=== PATIENT | male | born 1965 | race Caucasian/White ===

== ENCOUNTER → 2019-12-28 13:42 | Outpatient (BNVA) | payer MEDICAID, SELFPAY | PROVIDERS: PCP Student in an Organized Health Care Education/Training Program; Referring Provider Student in an Organized Health Care Education/Training Program; Visit Provider Internal Medicine | DX: Z86.718 Personal history of other venous thrombosis and embolism (principal); Z51.81 Encounter for therapeutic drug level monitoring; Z79.01 Long term (current) use of anticoagulants | CPT/HCPCS: 85610; 99211 ==

== ENCOUNTER → 2020-01-02 13:53 | Outpatient (BNVA) | payer MEDICAID, SELFPAY | PROVIDERS: PCP Student in an Organized Health Care Education/Training Program; Visit Provider Internal Medicine | DX: Z86.718 Personal history of other venous thrombosis and embolism (principal); Z51.81 Encounter for therapeutic drug level monitoring; Z79.01 Long term (current) use of anticoagulants | CPT/HCPCS: 85610; 99211 ==

== ENCOUNTER → 2020-01-11 13:51 | Outpatient (BNVA) | payer MEDICAID, SELFPAY | PROVIDERS: PCP Student in an Organized Health Care Education/Training Program; Visit Provider Internal Medicine | DX: Z86.718 Personal history of other venous thrombosis and embolism (principal); Z51.81 Encounter for therapeutic drug level monitoring; Z79.01 Long term (current) use of anticoagulants | CPT/HCPCS: 85610; 99211 ==

== ENCOUNTER → 2020-01-25 13:01 | Outpatient (BNVA) | payer MEDICAID, SELFPAY | PROVIDERS: PCP Student in an Organized Health Care Education/Training Program; Visit Provider Internal Medicine | DX: Z86.718 Personal history of other venous thrombosis and embolism (principal); Z51.81 Encounter for therapeutic drug level monitoring; Z79.01 Long term (current) use of anticoagulants | CPT/HCPCS: 85610; 99211 ==

== ENCOUNTER → 2020-02-22 13:09 | Outpatient (BNVA) | payer MEDICAID, SELFPAY | PROVIDERS: PCP Student in an Organized Health Care Education/Training Program; Visit Provider Internal Medicine | DX: Z86.718 Personal history of other venous thrombosis and embolism (principal); Z51.81 Encounter for therapeutic drug level monitoring; Z79.01 Long term (current) use of anticoagulants | CPT/HCPCS: 85610; 99211 ==

== ENCOUNTER → 2020-03-28 13:05 | Outpatient (BNVA) | payer MEDICAID, SELFPAY | PROVIDERS: PCP Student in an Organized Health Care Education/Training Program; Visit Provider Internal Medicine | DX: Z86.718 Personal history of other venous thrombosis and embolism (principal); Z79.01 Long term (current) use of anticoagulants; Z51.81 Encounter for therapeutic drug level monitoring | CPT/HCPCS: 85610; 99211 ==

== ENCOUNTER → 2020-04-01 19:09 | Outpatient (REF) | payer MEDICAID, SELFPAY | LOC: HO.SL 19:09 | PROVIDERS: PCP Student in an Organized Health Care Education/Training Program; Visit Provider Nurse Practitioner Family | DX: G47.33 Obstructive sleep apnea (adult) (pediatric) (principal); R06.83 Snoring | CPT/HCPCS: 95810 ==

== ENCOUNTER → 2020-04-04 13:02 | Outpatient (BNVA) | payer MEDICAID, SELFPAY | PROVIDERS: PCP Student in an Organized Health Care Education/Training Program; Visit Provider Internal Medicine | DX: Z86.718 Personal history of other venous thrombosis and embolism (principal); Z51.81 Encounter for therapeutic drug level monitoring; Z79.01 Long term (current) use of anticoagulants | CPT/HCPCS: 85610; 99211 ==

== ENCOUNTER → 2020-04-11 11:54 | Outpatient (BNVA) | payer MEDICAID, SELFPAY | PROVIDERS: PCP Student in an Organized Health Care Education/Training Program; Visit Provider Internal Medicine Cardiovascular Disease | DX: I10 Essential (primary) hypertension (principal); Z86.711 Personal history of pulmonary embolism | CPT/HCPCS: 99212 ==

== ENCOUNTER → 2020-05-02 13:02 | Outpatient (BNVA) | payer MEDICAID, SELFPAY | PROVIDERS: PCP Student in an Organized Health Care Education/Training Program; Visit Provider Internal Medicine | DX: Z86.718 Personal history of other venous thrombosis and embolism (principal); Z51.81 Encounter for therapeutic drug level monitoring; Z79.01 Long term (current) use of anticoagulants | CPT/HCPCS: 85610; 99211 ==

== ENCOUNTER → 2020-05-30 13:03 | Outpatient (BNVA) | payer MEDICAID, SELFPAY | PROVIDERS: PCP Student in an Organized Health Care Education/Training Program; Visit Provider Internal Medicine | DX: Z86.718 Personal history of other venous thrombosis and embolism (principal); Z51.81 Encounter for therapeutic drug level monitoring; Z79.01 Long term (current) use of anticoagulants | CPT/HCPCS: 85610; 99211 ==

== ENCOUNTER → 2020-06-06 13:02 | Outpatient (BNVA) | payer MEDICAID, SELFPAY | PROVIDERS: PCP Student in an Organized Health Care Education/Training Program; Visit Provider Internal Medicine | DX: Z86.718 Personal history of other venous thrombosis and embolism (principal); Z51.81 Encounter for therapeutic drug level monitoring; Z79.01 Long term (current) use of anticoagulants | CPT/HCPCS: 85610; 99211 ==

== ENCOUNTER → 2020-07-04 13:01 | Outpatient (BNVA) | payer MEDICAID, SELFPAY | PROVIDERS: PCP Student in an Organized Health Care Education/Training Program; Visit Provider Internal Medicine | DX: Z86.718 Personal history of other venous thrombosis and embolism (principal); Z79.01 Long term (current) use of anticoagulants; Z51.81 Encounter for therapeutic drug level monitoring | CPT/HCPCS: 85610; 99211 ==

== ENCOUNTER → 2020-07-11 13:05 | Outpatient (BNVA) | payer MEDICAID, SELFPAY | PROVIDERS: PCP Student in an Organized Health Care Education/Training Program; Visit Provider Internal Medicine | DX: Z86.718 Personal history of other venous thrombosis and embolism (principal); Z79.01 Long term (current) use of anticoagulants; Z51.81 Encounter for therapeutic drug level monitoring | CPT/HCPCS: 85610; 99211 ==

== ENCOUNTER → 2020-07-25 13:37 | Outpatient (BNVA) | payer MEDICAID, SELFPAY | PROVIDERS: PCP Student in an Organized Health Care Education/Training Program; Visit Provider Internal Medicine | DX: Z86.718 Personal history of other venous thrombosis and embolism (principal); Z79.01 Long term (current) use of anticoagulants; Z51.81 Encounter for therapeutic drug level monitoring | CPT/HCPCS: 85610; 99211 ==

== ENCOUNTER → 2020-08-22 13:03 | Outpatient (BNVA) | payer MEDICAID, SELFPAY | PROVIDERS: PCP Student in an Organized Health Care Education/Training Program; Visit Provider Internal Medicine | DX: Z86.718 Personal history of other venous thrombosis and embolism (principal); Z51.81 Encounter for therapeutic drug level monitoring; Z79.01 Long term (current) use of anticoagulants | CPT/HCPCS: 85610; 99211 ==

== ENCOUNTER → 2020-09-25 13:39 | Outpatient (BNVA) | payer MEDICAID, SELFPAY | PROVIDERS: PCP Student in an Organized Health Care Education/Training Program; Visit Provider Internal Medicine | DX: Z86.718 Personal history of other venous thrombosis and embolism (principal); Z51.81 Encounter for therapeutic drug level monitoring; Z79.01 Long term (current) use of anticoagulants | CPT/HCPCS: 85610; 99211 ==

== ENCOUNTER → 2020-10-09 13:26 | Outpatient (BNVA) | payer MEDICAID, SELFPAY | PROVIDERS: PCP Student in an Organized Health Care Education/Training Program; Visit Provider Internal Medicine | DX: Z86.718 Personal history of other venous thrombosis and embolism (principal); Z51.81 Encounter for therapeutic drug level monitoring; Z79.01 Long term (current) use of anticoagulants | CPT/HCPCS: 85610; 99211 ==

== ENCOUNTER → 2020-11-01 13:13 | Outpatient (BNVA) | payer MEDICAID, SELFPAY | PROVIDERS: PCP Student in an Organized Health Care Education/Training Program; Visit Provider Internal Medicine | DX: Z86.718 Personal history of other venous thrombosis and embolism (principal); Z51.81 Encounter for therapeutic drug level monitoring; Z79.01 Long term (current) use of anticoagulants | CPT/HCPCS: 85610; 99211 ==

== ENCOUNTER → 2020-11-29 13:03 | Outpatient (BNVA) | payer MEDICAID, SELFPAY | PROVIDERS: PCP Student in an Organized Health Care Education/Training Program; Visit Provider Internal Medicine | DX: Z86.718 Personal history of other venous thrombosis and embolism (principal); Z51.81 Encounter for therapeutic drug level monitoring; Z79.01 Long term (current) use of anticoagulants | CPT/HCPCS: 85610; 99211 ==

== ENCOUNTER → 2020-12-13 13:22 | Outpatient (BNVA) | payer MEDICAID, SELFPAY | PROVIDERS: PCP Student in an Organized Health Care Education/Training Program; Visit Provider Internal Medicine | DX: Z86.718 Personal history of other venous thrombosis and embolism (principal); Z51.81 Encounter for therapeutic drug level monitoring; Z79.01 Long term (current) use of anticoagulants | CPT/HCPCS: 85610; 99211 ==

== ENCOUNTER → 2021-01-03 13:01 | Outpatient (BNVA) | payer MEDICAID, SELFPAY | PROVIDERS: PCP Student in an Organized Health Care Education/Training Program; Visit Provider Internal Medicine | DX: Z86.718 Personal history of other venous thrombosis and embolism (principal); Z51.81 Encounter for therapeutic drug level monitoring; Z79.01 Long term (current) use of anticoagulants | CPT/HCPCS: 85610; 99211 ==

== ENCOUNTER → 2021-01-31 14:00 | Outpatient (BNVA) | payer MEDICAID, SELFPAY | PROVIDERS: PCP Student in an Organized Health Care Education/Training Program; Visit Provider Internal Medicine | DX: Z86.718 Personal history of other venous thrombosis and embolism (principal); Z51.81 Encounter for therapeutic drug level monitoring; Z79.01 Long term (current) use of anticoagulants | CPT/HCPCS: 85610; 99211 ==

== ENCOUNTER → 2021-02-28 13:28 | Outpatient (BNVA) | payer MEDICAID, SELFPAY | PROVIDERS: PCP Student in an Organized Health Care Education/Training Program; Visit Provider Internal Medicine | DX: Z86.718 Personal history of other venous thrombosis and embolism (principal); Z51.81 Encounter for therapeutic drug level monitoring; Z79.01 Long term (current) use of anticoagulants | CPT/HCPCS: 85610; 99211 ==

== ENCOUNTER → 2021-03-31 11:07 | Outpatient (BNVA) | payer MEDICAID, SELFPAY | PROVIDERS: PCP Student in an Organized Health Care Education/Training Program; Visit Provider Internal Medicine | DX: Z86.718 Personal history of other venous thrombosis and embolism (principal); Z51.81 Encounter for therapeutic drug level monitoring; Z79.01 Long term (current) use of anticoagulants | CPT/HCPCS: 85610; 99211 ==

== ENCOUNTER → 2021-05-07 14:02 | Outpatient (BNVA) | payer MEDICAID, SELFPAY | PROVIDERS: PCP Student in an Organized Health Care Education/Training Program; Visit Provider Internal Medicine | DX: Z86.718 Personal history of other venous thrombosis and embolism (principal); Z51.81 Encounter for therapeutic drug level monitoring; Z79.01 Long term (current) use of anticoagulants | CPT/HCPCS: 85610; 99211 ==

== ENCOUNTER → 2021-06-04 13:54 | Outpatient (BNVA) | payer MEDICAID, SELFPAY | PROVIDERS: PCP Student in an Organized Health Care Education/Training Program; Visit Provider Internal Medicine | DX: Z86.718 Personal history of other venous thrombosis and embolism (principal); Z51.81 Encounter for therapeutic drug level monitoring; Z79.01 Long term (current) use of anticoagulants | CPT/HCPCS: 85610; 99211 ==

== ENCOUNTER → 2021-06-18 14:02 | Outpatient (BNVA) | payer MEDICAID, SELFPAY | PROVIDERS: PCP Student in an Organized Health Care Education/Training Program; Visit Provider Internal Medicine | DX: Z86.718 Personal history of other venous thrombosis and embolism (principal); Z51.81 Encounter for therapeutic drug level monitoring; Z79.01 Long term (current) use of anticoagulants | CPT/HCPCS: 85610; 99211 ==

== ENCOUNTER → 2021-10-30 13:39 | Outpatient (BNVA) | payer OTHER, SELFPAY | PROVIDERS: PCP Student in an Organized Health Care Education/Training Program; Visit Provider Internal Medicine | DX: Z86.718 Personal history of other venous thrombosis and embolism (principal); Z79.01 Long term (current) use of anticoagulants; Z51.81 Encounter for therapeutic drug level monitoring | CPT/HCPCS: 85610; 99211 ==

== ENCOUNTER → 2021-11-06 14:01 | Outpatient (BNVA) | payer OTHER, SELFPAY | PROVIDERS: PCP Student in an Organized Health Care Education/Training Program; Visit Provider Internal Medicine | DX: Z86.718 Personal history of other venous thrombosis and embolism (principal); Z79.01 Long term (current) use of anticoagulants; Z51.81 Encounter for therapeutic drug level monitoring | CPT/HCPCS: 85610; 99211 ==

== ENCOUNTER → 2021-11-27 11:22 | Outpatient (BNVA) | payer OTHER, SELFPAY | PROVIDERS: PCP Student in an Organized Health Care Education/Training Program; Visit Provider Internal Medicine | DX: Z86.718 Personal history of other venous thrombosis and embolism (principal); Z79.01 Long term (current) use of anticoagulants; Z51.81 Encounter for therapeutic drug level monitoring | CPT/HCPCS: 85610; 99211 ==

== ENCOUNTER → 2021-12-25 13:00 | Outpatient (BNVA) | payer OTHER, SELFPAY | PROVIDERS: PCP Student in an Organized Health Care Education/Training Program; Visit Provider Internal Medicine | DX: Z86.718 Personal history of other venous thrombosis and embolism (principal); Z79.01 Long term (current) use of anticoagulants; Z51.81 Encounter for therapeutic drug level monitoring | CPT/HCPCS: 85610; 99211 ==

== ENCOUNTER → 2022-01-29 13:03 | Outpatient (BNVA) | payer OTHER, SELFPAY | PROVIDERS: PCP Student in an Organized Health Care Education/Training Program; Visit Provider Internal Medicine | DX: Z86.718 Personal history of other venous thrombosis and embolism (principal); Z79.01 Long term (current) use of anticoagulants; Z51.81 Encounter for therapeutic drug level monitoring | CPT/HCPCS: 85610; 99211 ==

== ENCOUNTER → 2022-02-26 12:59 | Outpatient (BNVA) | payer OTHER, SELFPAY | PROVIDERS: PCP Student in an Organized Health Care Education/Training Program; Visit Provider Internal Medicine | DX: Z86.718 Personal history of other venous thrombosis and embolism (principal); Z79.01 Long term (current) use of anticoagulants; Z51.81 Encounter for therapeutic drug level monitoring | CPT/HCPCS: 85610; 99211 ==

== ENCOUNTER → 2022-04-02 13:20 | Outpatient (BNVA) | payer OTHER, SELFPAY | PROVIDERS: PCP Student in an Organized Health Care Education/Training Program; Visit Provider Internal Medicine | DX: Z86.718 Personal history of other venous thrombosis and embolism (principal); Z79.01 Long term (current) use of anticoagulants; Z51.81 Encounter for therapeutic drug level monitoring | CPT/HCPCS: 85610; 99211 ==

== ENCOUNTER → 2022-04-30 13:01 | Outpatient (BNVA) | payer OTHER, SELFPAY | PROVIDERS: PCP Student in an Organized Health Care Education/Training Program; Visit Provider Internal Medicine | DX: Z86.718 Personal history of other venous thrombosis and embolism (principal); Z79.01 Long term (current) use of anticoagulants; Z51.81 Encounter for therapeutic drug level monitoring | CPT/HCPCS: 85610; 99211 ==

== ENCOUNTER → 2022-05-28 12:42 | Outpatient (BNVA) | payer OTHER, SELFPAY | PROVIDERS: PCP Student in an Organized Health Care Education/Training Program; Visit Provider Internal Medicine | DX: Z86.718 Personal history of other venous thrombosis and embolism (principal); Z79.01 Long term (current) use of anticoagulants; Z51.81 Encounter for therapeutic drug level monitoring | CPT/HCPCS: 85610; 99211 ==

== ENCOUNTER → 2022-06-11 13:24 | Outpatient (BNVA) | payer OTHER, SELFPAY | PROVIDERS: PCP Student in an Organized Health Care Education/Training Program; Visit Provider Internal Medicine | DX: Z86.718 Personal history of other venous thrombosis and embolism (principal); Z79.01 Long term (current) use of anticoagulants; Z51.81 Encounter for therapeutic drug level monitoring | CPT/HCPCS: 85610; 99211 ==

== ENCOUNTER → 2022-07-09 13:02 | Outpatient (BNVA) | payer OTHER, SELFPAY | PROVIDERS: PCP Student in an Organized Health Care Education/Training Program; Visit Provider Internal Medicine | DX: Z86.718 Personal history of other venous thrombosis and embolism (principal); Z79.01 Long term (current) use of anticoagulants; Z51.81 Encounter for therapeutic drug level monitoring | CPT/HCPCS: 85610; 99211 ==

== ENCOUNTER → 2022-07-23 13:05 | Outpatient (BNVA) | payer OTHER, SELFPAY | PROVIDERS: PCP Internal Medicine; Visit Provider Internal Medicine | DX: Z86.718 Personal history of other venous thrombosis and embolism (principal); Z79.01 Long term (current) use of anticoagulants; Z51.81 Encounter for therapeutic drug level monitoring | CPT/HCPCS: 85610; 99211 ==

== ENCOUNTER → 2022-08-20 13:02 | Outpatient (BNVA) | payer OTHER, SELFPAY | PROVIDERS: PCP Internal Medicine; Visit Provider Internal Medicine | DX: Z86.718 Personal history of other venous thrombosis and embolism (principal); Z79.01 Long term (current) use of anticoagulants; Z51.81 Encounter for therapeutic drug level monitoring | CPT/HCPCS: 85610; 99211 ==

== ENCOUNTER 2022-09-28 13:02 | Outpatient (AMB) | payer OTHER, SELFPAY ==
[2022-09-28 13:57] LABS: Prothrombin Time Whole Bld POC 52.4 sec (11.1-13.5); ~PT, ~INR - Anti Coag Clinic 4.4 (0.9-1.1)
--- NOTE | 2022-09-28 13:59 | MHC.OFFVISCO ---
Intake Intake Visit Reasons: Anticoagulation Allergies No Known Allergies [No Known Allergies*] Allergy (Verified 09/28/22 13:51) Medication List - Last Reconciled 09/28/22 by Rain Granados RN acetaminophen ER (Arthritis Pain Relief (acetaminophen) ER) 650 mg PO Q8H amlodipine 5 mg PO DAILY furosemide 40 mg PO DAILY gabapentin 300 mg PO TID triamcinolone acetonide 0.1% topical PRN warfarin 4 mg See Protocol PO DAILY Nursing Note hoping to have scooter soon for transportaion INR 4.4? out of therapeutic range Medications and supplements reviewed Patient status: did not have enough green s Medications or supplements: no changes Diet: good Denies any signs and symptoms of bleeding or clotting or unusual bruising Bleeding, bruising, clotting discussed Nutritional guidance given: review food list weazam , eat greens weekly Dose: hold today,then 4mg x 6 days/ 6mg x 1 day F/U INR Date : 10/08/22 ?? Patient verbalizing understanding of instructions given. Anti-Coag Initial Assessment Social Hx Smoking packs per day: 0.5 Coding Level of Care Code Est Patient Level 1 Diagnoses Current use of anticoagulant therapy Z79.01 Results AMB INR Fingerstick AMB INR Fingerstick 4.4 Last Edit by Rain Granados RN on 09/28/22 13:59 interfacing failure Assessment & Plan Assessment & Plan (1) Current use of anticoagulant therapy: Code(s): Z79.01 - intermediate frame tender (current) use of anticoagulants Category: Medical
== END 2022-09-28 14:10 | disposition home or self-care (01) ==
LOC: HO.ACS 13:02
PROVIDERS: PCP Internal Medicine; Visit Provider Internal Medicine
DX: Z79.01 Long term (current) use of anticoagulants (principal)

== ENCOUNTER → 2022-09-28 13:02 | Outpatient (BNVA) | payer OTHER, SELFPAY | PROVIDERS: PCP Internal Medicine; Visit Provider Internal Medicine | DX: Z86.718 Personal history of other venous thrombosis and embolism (principal); Z79.01 Long term (current) use of anticoagulants; Z51.81 Encounter for therapeutic drug level monitoring | CPT/HCPCS: 85610; 99211 ==

== ENCOUNTER 2022-10-08 13:01 | Outpatient (AMB) | payer OTHER, SELFPAY ==
[2022-10-08 13:11] LABS: Prothrombin Time Whole Bld POC 30.4 sec (11.1-13.5); ~PT, ~INR - Anti Coag Clinic 2.5 (0.9-1.1)
--- NOTE | 2022-10-08 13:13 | MHC.OFFVISCO ---
Intake Intake Visit Reasons: Anticoagulation Allergies No Known Allergies [No Known Allergies*] Allergy (Verified 10/08/22 13:04) Medication List - Last Reconciled 10/08/22 by Archana Jones RN acetaminophen ER (Arthritis Pain Relief (acetaminophen) ER) 650 mg PO Q8H amlodipine 5 mg PO DAILY furosemide 40 mg PO DAILY gabapentin 300 mg PO TID triamcinolone acetonide 0.1% topical PRN warfarin 4 mg See Protocol PO DAILY Nursing Note Amb to [facility] slowly on his crutches feeling ok Medications and supplements reviewed No changes in health, diet, medications, or supplements Denies any unusual signs and symptoms of bruising, bleeding Denies any new Chest pain, SOB, or clotting INR: 2.5 in therapeutic range Nutritional guidance given: balance greens and reds in diet, sts he is eating 1 meal a day, sts trying to loose weight describes a lunch of pancakes and ice cream Dose: continue usual dosing; 6mg x 1 day and 4mg x 6 days F/U INR: 4 weeks Patient verbalizes understanding of instructions given with accurate read back/ teach back of dosing Anti-Coag Initial Assessment Social Hx Smoking packs per day: 0.5 Coding Level of Care Code Est Patient Level 1 Diagnoses Current use of anticoagulant therapy Z79.01 Time Spent (min) 15 Assessment & Plan Assessment & Plan (1) Current use of anticoagulant therapy: Code(s): Z79.01 - [facility] (current) use of anticoagulants Category: Medical
== END 2022-10-08 14:37 | disposition home or self-care (01) ==
LOC: HO.ACS 13:01
PROVIDERS: PCP Internal Medicine; Visit Provider Internal Medicine
DX: Z79.01 Long term (current) use of anticoagulants (principal)

== ENCOUNTER → 2022-10-08 13:01 | Outpatient (BNVA) | payer OTHER, SELFPAY | PROVIDERS: PCP Internal Medicine; Visit Provider Internal Medicine | DX: Z86.718 Personal history of other venous thrombosis and embolism (principal); Z79.01 Long term (current) use of anticoagulants; Z51.81 Encounter for therapeutic drug level monitoring | CPT/HCPCS: 85610; 99211 ==

== ENCOUNTER 2022-11-24 13:10 | Outpatient (AMB) | payer OTHER, SELFPAY ==
[2022-11-24 13:18] LABS: Prothrombin Time Whole Bld POC 22.6 sec (11.1-13.5); ~PT, ~INR - Anti Coag Clinic 1.9 (0.9-1.1)
--- NOTE | 2022-11-24 13:38 | MHC.OFFVISCO ---
Intake Intake Visit Reasons: Anticoagulation Allergies No Known Allergies [No Known Allergies*] Allergy (Verified 11/24/22 13:13) Medication List - Last Reconciled 11/24/22 by Archana Jones, RN acetaminophen ER (Arthritis Pain Relief (acetaminophen) ER) 650 mg PO Q8H amlodipine 5 mg PO DAILY furosemide 40 mg PO DAILY gabapentin 300 mg PO TID triamcinolone acetonide 0.1% topical PRN warfarin 4 mg See Protocol PO DAILY Nursing Note Amb to [facility] slowly using crutches feeling ok, sts he should be getting his scooter soon Medications and supplements reviewed, sts he has run out of warfarin had a half a pill that I took last night as that is all I had left (usual dose is 4mg) sts he called for a refill a few days ago but they told me they could not fill it as it was too early call to pharmacy at [facility] and pharmacist sts he is eligible for a refill however prescription is for one tablet daily and is filled for 30 days, script will be available today 20 mins per pharmacist reviewed with pharmacist Koki pt dosing. PCP info obtained and PCP will be called to update script so pt gets enough warfarin for dosing pt instructed that he also needs to be proactive since he could of called PCP last week re this issue as he was aware of the take 1 pill daily issue No other changes in health, diet, medications, or supplements Denies any unusual signs and symptoms of bruising, bleeding Denies any new Chest pain, SOB, or clotting INR: 1.9 below therapeutic range Nutritional guidance given: no greens x 2 days then balance greens and reds in diet Dose: increase dose today to 6mg then resume usual dosing;6mg on Wednesday and 4mg all other days F/U INR: 4 weeks Patient verbalizes understanding of instructions given with accurate read back/ teach back of dosing call to [facility] for PCP, continue on hold x 18 mins and will leave message for PCP regarding warfarin script Call to [facility] critical care line regarding above, spoke with Yulia GUNN who will alert physician regarding script issues as written, she also sts pt is over due for F/U appt call to pt and message left to call for F/U appointment with new PCP, Antwon Rodriguez Anti-Coag Initial Assessment Social Hx Smoking packs per day: 0.5 Coding Level of Care Code Est Patient Level 2 Diagnoses Current use of anticoagulant therapy Z79.01 Time Spent (min) 30 Assessment & Plan Assessment & Plan (1) Current use of anticoagulant therapy: Code(s): Z79.01 - care home (current) use of anticoagulants Category: Medical
== END 2022-11-24 14:04 | disposition home or self-care (01) ==
LOC: HO.ACS 13:10
PROVIDERS: PCP Internal Medicine; Visit Provider Internal Medicine
DX: Z79.01 Long term (current) use of anticoagulants (principal)

== ENCOUNTER → 2022-11-24 13:10 | Outpatient (BNVA) | payer OTHER, SELFPAY | PROVIDERS: PCP Internal Medicine; Visit Provider Internal Medicine | DX: Z86.718 Personal history of other venous thrombosis and embolism (principal); Z79.01 Long term (current) use of anticoagulants; Z51.81 Encounter for therapeutic drug level monitoring | CPT/HCPCS: 85610; 99212 ==

== ENCOUNTER 2022-12-22 12:58 | Outpatient (AMB) | payer OTHER, SELFPAY ==
[2022-12-22 13:10] LABS: Prothrombin Time Whole Bld POC 23.8 sec (11.1-13.5)
--- NOTE | 2022-12-22 13:13 | MHC.OFFVISCO ---
Intake Intake Visit Reasons: Anticoagulation Allergies No Known Allergies [No Known Allergies*] Allergy (Verified 12/22/22 13:06) Medication List - Last Reconciled 12/22/22 by Archana Jones, RN acetaminophen ER (Arthritis Pain Relief (acetaminophen) ER) 650 mg PO Q8H amlodipine 5 mg PO DAILY furosemide 40 mg PO DAILY gabapentin 300 mg PO TID triamcinolone acetonide 0.1% topical PRN warfarin 4 mg See Protocol PO DAILY Nursing Note Amb to [facility] using crutches for support, feeling ok Medications and supplements reviewed, sts he is almost out of warfarin and it will be refilled tomorrow, sts he already took dose today and will greens picker warfarin tomorrow, also sts he took only 4mg Wednesday instead of 6mg as he was running low, and the pharmacy would not refill until Wednesday this week referred to PCP for refill concerns and to not wait till running out of pills No other changes in health, diet, medications, or supplements Denies any unusual signs and symptoms of bruising, bleeding Denies any new Chest pain, SOB, or clotting INR: 2.0 just in therapeutic range (did not take usual doisng) Nutritional guidance given: no greens x 2 days (not a green eater) then balance greens and reds in diet Dose: continue usual dosing;6mg on Fridays, 4mg x 6 days F/U INR: 4 weeks Patient verbalizes understanding of instructions given with accurate read back/ teach back of dosing Anti-Coag Initial Assessment Social Hx Smoking packs per day: 0.5 Coding Level of Care Code Est Patient Level 1 Diagnoses Current use of anticoagulant therapy Z79.01 Time Spent (min) 15 Assessment & Plan Assessment & Plan (1) Current use of anticoagulant therapy: Code(s): 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
== END 2022-12-22 13:23 | disposition home or self-care (01) ==
LOC: HO.ACS 12:58
PROVIDERS: PCP Internal Medicine; Visit Provider Internal Medicine
DX: Z79.01 Long term (current) use of anticoagulants (principal)

== ENCOUNTER → 2022-12-22 12:58 | Outpatient (BNVA) | payer OTHER, SELFPAY | PROVIDERS: PCP Internal Medicine; Visit Provider Internal Medicine | DX: Z86.718 Personal history of other venous thrombosis and embolism (principal); Z51.81 Encounter for therapeutic drug level monitoring; Z79.01 Long term (current) use of anticoagulants | CPT/HCPCS: 85610; 99211 ==

== ENCOUNTER 2023-01-19 12:56 | Outpatient (AMB) | payer OTHER, SELFPAY ==
[2023-01-19 13:05] LABS: Prothrombin Time Whole Bld POC 31.5 sec (11.1-13.5); ~PT, ~INR - Anti Coag Clinic 2.6 (0.9-1.1)
--- NOTE | 2023-01-19 13:10 | MHC.OFFVISCO ---
Intake Intake Visit Reasons: Anticoagulation Allergies No Known Allergies [No Known Allergies*] Allergy (Verified 12/22/22 13:06) Nursing Note INR: 2.6 in therapeutic range Medications and supplements reviewed PT STATES HIS HIPS JOINTS ARE WORN COMPLETELY OUT AND NEEDS A HIP REPLACEMENT EXPERT, INSTRUCTED TO CALL WITH SURGERY DATE Denies any signs and symptoms of bleeding or bruising or clotting. Bleeding, bruising, clotting discussed Nutritional guidance given KEEP EATING A MIX OF FRUITS AND VEGETABLES Dose: 6MG X 1 DAY/ 4MG X 6 DAYS F/U INR: 4 WEEKS Patient verbalizes understanding of instructions given Anti-Coag Initial Assessment Social Hx Smoking packs per day: 0.5 Coding Level of Care Code Est Patient Level 1 Diagnoses Current use of anticoagulant therapy Z79.01 Assessment & Plan Assessment & Plan (1) Current use of anticoagulant therapy: Code(s): Z79.01 - bed bug exterminator (current) use of anticoagulants Category: Medical
== END 2023-01-19 13:12 | disposition home or self-care (01) ==
LOC: HO.ACS 12:56
PROVIDERS: PCP Internal Medicine; Visit Provider Internal Medicine
DX: Z79.01 Long term (current) use of anticoagulants (principal)

== ENCOUNTER → 2023-01-19 12:56 | Outpatient (BNVA) | payer OTHER, SELFPAY | PROVIDERS: PCP Internal Medicine; Visit Provider Internal Medicine | DX: Z86.718 Personal history of other venous thrombosis and embolism (principal); Z79.01 Long term (current) use of anticoagulants; Z51.81 Encounter for therapeutic drug level monitoring | CPT/HCPCS: 85610; 99211 ==

== ENCOUNTER 2023-02-18 13:03 | Outpatient (AMB) | payer OTHER, SELFPAY ==
--- NOTE | 2023-02-18 13:08 | MHC.OFFVISCO ---
Intake Intake Visit Reasons: Anticoagulation Allergies No Known Allergies [No Known Allergies*] Allergy (Verified 02/18/23 13:04) Medication List - Last Reconciled 02/18/23 by Rain Granados RN acetaminophen ER (Arthritis Pain Relief (acetaminophen) ER) 650 mg PO Q8H amlodipine 5 mg PO DAILY furosemide 40 mg PO DAILY gabapentin 300 mg PO TID triamcinolone acetonide 0.1% topical PRN warfarin 4 mg See Protocol PO DAILY Nursing Note INR: 2.5 in therapeutic range Medications and supplements reviewed No changes in health, diet, medications, or supplements, Denies any signs and symptoms of bleeding or bruising or clotting. 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
[2023-02-18 15:49] LABS: Prothrombin Time Whole Bld POC 29.6 sec (11.1-13.5); ~PT, ~INR - Anti Coag Clinic 2.5 (0.9-1.1)
== END 2023-02-18 13:18 | disposition home or self-care (01) ==
LOC: HO.ACS 13:04
PROVIDERS: PCP Internal Medicine; Visit Provider Internal Medicine
DX: Z79.01 Long term (current) use of anticoagulants (principal)

== ENCOUNTER → 2023-02-18 13:03 | Outpatient (BNVA) | payer OTHER, SELFPAY | PROVIDERS: PCP Internal Medicine; Visit Provider Internal Medicine | DX: Z86.718 Personal history of other venous thrombosis and embolism (principal); Z79.01 Long term (current) use of anticoagulants; Z51.81 Encounter for therapeutic drug level monitoring | CPT/HCPCS: 85610; 99211 ==

== ENCOUNTER 2023-03-18 12:56 | Outpatient (AMB) | payer OTHER, SELFPAY ==
--- NOTE | 2023-03-18 13:12 | MHC.OFFVISCO ---
Intake Intake Visit Reasons: Anticoagulation Allergies No Known Allergies [No Known Allergies*] Allergy (Verified 03/18/23 13:10) Medication List - Last Reconciled 03/18/23 by Nery Holguin RN acetaminophen ER (Arthritis Pain Relief (acetaminophen) ER) 650 mg PO Q8H amlodipine 5 mg PO DAILY furosemide 40 mg PO DAILY gabapentin 300 mg PO TID triamcinolone acetonide 0.1% topical PRN warfarin 4 mg See Protocol PO DAILY Nursing Note INR: 2.6- in therapeutic range of 2-3 Medications and supplements reviewed- no changes ibuprofen prn- risks/bleed risk reviewed with pt pt with severe athritic pain issues/hips. amb with crutches, has scooter at home No changes in health, diet, medications, or supplements, Denies any signs and symptoms of bleeding or bruising or clotting. Bleeding, bruising, clotting discussed Nutritional guidance given Dose: 4mg x 6, 6mg x 1 F/U INR: 4 weeks Patient verbalizes understanding of instructions given Anti-Coag Initial Assessment Social Hx Smoking packs per day: 0.5 Coding Level of Care Code Est Patient Level 1 Diagnoses Current use of anticoagulant therapy Z79.01 Assessment & Plan Assessment & Plan (1) Current use of anticoagulant therapy: Code(s): Z79.01 - intermediate manager (current) use of anticoagulants Category: Medical
[2023-03-18 13:14] LABS: Prothrombin Time Whole Bld POC 31.1 sec (11.1-13.5); ~PT, ~INR - Anti Coag Clinic 2.6 (0.9-1.1)
== END 2023-03-18 13:20 | disposition home or self-care (01) ==
LOC: HO.ACS 12:56
PROVIDERS: PCP Internal Medicine; Visit Provider Internal Medicine
DX: Z79.01 Long term (current) use of anticoagulants (principal)

== ENCOUNTER → 2023-03-18 12:56 | Outpatient (BNVA) | payer OTHER, SELFPAY | PROVIDERS: PCP Internal Medicine; Visit Provider Internal Medicine | DX: Z86.718 Personal history of other venous thrombosis and embolism (principal); Z79.01 Long term (current) use of anticoagulants; Z51.81 Encounter for therapeutic drug level monitoring | CPT/HCPCS: 85610; 99211 ==

== ENCOUNTER 2023-04-16 13:01 | Outpatient (AMB) | payer OTHER, SELFPAY ==
[2023-04-16 13:17] LABS: Prothrombin Time Whole Bld POC 30.9 sec (11.1-13.5); ~PT, ~INR - Anti Coag Clinic 2.6 (0.9-1.1)
--- NOTE | 2023-04-16 13:19 | MHC.OFFVISCO ---
Intake Intake Visit Reasons: Anticoagulation Allergies No Known Allergies [No Known Allergies*] Allergy (Verified 04/16/23 13:09) Medication List - Last Reconciled 04/16/23 by Archana Montes, LUIS A acetaminophen ER (Arthritis Pain Relief (acetaminophen) ER) 650 mg PO Q8H amlodipine 10 mg PO DAILY furosemide 40 mg PO DAILY gabapentin 300 mg PO TID triamcinolone acetonide 0.1% topical PRN warfarin 4 mg See Protocol PO DAILY Nursing Note PT TO [facility] WITH NO C/O UNUSUAL BRUISING OR BLEEDING. NO CHEST PAIN OR SOB. AMLODIPINE HAS BEEN CHANGED FROM 5 MG TO 10 MG DAILY. INR 2.6 IN RANGE. PLAN TO CONTINUE USUAL DOSING AND F/U IN 1 MONTH. PT VERBALIZES UNDERSTANDING. Anti-Coag Initial Assessment Social Hx Smoking packs per day: 0.5 Coding Level of Care Code Est Patient Level 1 Diagnoses Current use of anticoagulant therapy Z79.01 Assessment & Plan Assessment & Plan (1) Current use of anticoagulant therapy: Code(s): Z79.01 - intermediate frame tender (current) use of anticoagulants Category: Medical
== END 2023-04-16 13:27 | disposition home or self-care (01) ==
LOC: HO.ACS 13:02
PROVIDERS: PCP Internal Medicine; Visit Provider Internal Medicine
DX: Z79.01 Long term (current) use of anticoagulants (principal)

== ENCOUNTER → 2023-04-16 13:01 | Outpatient (BNVA) | payer OTHER, SELFPAY | PROVIDERS: PCP Internal Medicine; Visit Provider Internal Medicine | DX: Z86.718 Personal history of other venous thrombosis and embolism (principal); Z79.01 Long term (current) use of anticoagulants; Z51.81 Encounter for therapeutic drug level monitoring | CPT/HCPCS: 85610; 99211 ==

== ENCOUNTER 2023-05-13 13:00 | Outpatient (AMB) | payer OTHER, SELFPAY ==
--- NOTE | 2023-05-13 13:12 | MHC.OFFVISCO ---
Intake Intake Visit Reasons: Anticoagulation Allergies No Known Allergies [No Known Allergies*] Allergy (Verified 05/13/23 13:03) Medication List - Last Reconciled 05/13/23 by Rain Granados RN acetaminophen ER (Arthritis Pain Relief (acetaminophen) ER) 650 mg PO Q8H amlodipine 10 mg PO DAILY furosemide 40 mg PO DAILY gabapentin 300 mg PO TID rosuvastatin 10 mg PO BEDTIME triamcinolone acetonide 0.1% topical PRN warfarin 4 mg See Protocol PO DAILY Nursing Note INR: 2.3 in therapeutic range Medications and supplements reviewed No changes in health, diet, medications, or supplements, STILL WAITING TO HAVE PRE SURGICAL APPOINTMENT FOR HIP REPLACEMENTS Denies any signs and symptoms of bleeding or bruising or clotting. 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
[2023-05-13 16:07] LABS: Prothrombin Time Whole Bld POC 28.2 sec (11.1-13.5); ~PT, ~INR - Anti Coag Clinic 2.3 (0.9-1.1)
== END 2023-05-13 13:17 | disposition home or self-care (01) ==
LOC: HO.ACS 13:00
PROVIDERS: PCP Internal Medicine; Visit Provider Internal Medicine
DX: Z79.01 Long term (current) use of anticoagulants (principal)

== ENCOUNTER → 2023-05-13 13:00 | Outpatient (BNVA) | payer OTHER, SELFPAY | PROVIDERS: PCP Internal Medicine; Visit Provider Internal Medicine | DX: Z86.718 Personal history of other venous thrombosis and embolism (principal); Z79.01 Long term (current) use of anticoagulants; Z51.81 Encounter for therapeutic drug level monitoring | CPT/HCPCS: 85610; 99211 ==

== ENCOUNTER 2023-06-10 13:00 | Outpatient (AMB) | payer OTHER, SELFPAY ==
[2023-06-10 13:10] LABS: Prothrombin Time Whole Bld POC 41.7 sec (11.1-13.5); ~PT, ~INR - Anti Coag Clinic 3.5 (0.9-1.1)
--- NOTE | 2023-06-10 13:17 | MHC.OFFVISCO ---
Intake Intake Visit Reasons: Anticoagulation Allergies No Known Allergies [No Known Allergies*] Allergy (Verified 06/10/23 13:05) Medication List - Last Reconciled 06/10/23 by Rain Granados RN acetaminophen ER (Arthritis Pain Relief (acetaminophen) ER) 650 mg PO Q8H amlodipine 10 mg PO DAILY furosemide 40 mg PO DAILY gabapentin 300 mg PO TID rosuvastatin 10 mg PO BEDTIME triamcinolone acetonide 0.1% topical PRN warfarin 4 mg See Protocol PO DAILY Nursing Note INR: 3.5 NOTin therapeutic range Medications and supplements reviewed- HAS HAD TO TAKE IBUPROFEN A FEW TIMES DUE TO PAIN- WHICH CAN RAISE THE INR - PT ENC TO AVOID BUT IF HE MUST TAKE IT TO TAKE IT WITH FOOD HE HAD EATEN A LOT OF CABBAGE SO HE INCREASE HIS WARFARIN DOSE 1 DAY- WHICH MAY HAVE RAISE THE INR PLUS HAS BEEN EATING DARK CHOCOLATE COVERED ALMONDS THAT MAY BE RAISING THE INR ALSO Denies any signs and symptoms of bleeding or bruising or clotting. Bleeding, bruising, clotting discussed Nutritional guidance given Dose: ALREADY TOOK TODAYS DOSE, DECREASE TOMORROWS DOSE 4MG THEN RESUME 6MG X 1 DAY/ 4MG X 6 DAYS F/U INR: 4 WEEKS PER PT REQUEST AND DUE TO HIS PAIN WITH AMBULATING Patient verbalizes understanding of instructions given Anti-Coag Initial Assessment Social Hx Smoking packs per day: 0.5 Coding Level of Care Code Est Patient Level 1 Diagnoses Current use of anticoagulant therapy Z79.01 Assessment & Plan Assessment & Plan (1) Current use of anticoagulant therapy: Code(s): Z79.01 - jail (current) use of anticoagulants Category: Medical
== END 2023-06-10 13:24 | disposition home or self-care (01) ==
LOC: HO.ACS 13:00
PROVIDERS: PCP Internal Medicine; Visit Provider Internal Medicine
DX: Z79.01 Long term (current) use of anticoagulants (principal)

== ENCOUNTER → 2023-06-10 13:00 | Outpatient (BNVA) | payer OTHER, SELFPAY | PROVIDERS: PCP Internal Medicine; Visit Provider Internal Medicine | DX: Z86.718 Personal history of other venous thrombosis and embolism (principal); Z79.01 Long term (current) use of anticoagulants; Z51.81 Encounter for therapeutic drug level monitoring | CPT/HCPCS: 85610; 99211 ==

== ENCOUNTER 2023-07-08 13:03 | Outpatient (AMB) | payer OTHER, SELFPAY ==
[2023-07-08 13:12] LABS: Prothrombin Time Whole Bld POC 28.5 sec (11.1-13.5); ~PT, ~INR - Anti Coag Clinic 2.4 (0.9-1.1)
--- NOTE | 2023-07-08 13:28 | MHC.OFFVISCO ---
Intake Intake Visit Reasons: Anticoagulation Allergies No Known Allergies [No Known Allergies*] Allergy (Verified 07/08/23 13:07) Medication List - Last Reconciled 07/08/23 by Asia Soto RN acetaminophen ER (Arthritis Pain Relief (acetaminophen) ER) 650 mg PO Q8H amlodipine 10 mg PO DAILY furosemide 40 mg PO DAILY gabapentin 300 mg PO TID rosuvastatin 10 mg PO BEDTIME triamcinolone acetonide 0.1% topical PRN warfarin 4 mg See Protocol PO DAILY Nursing Note PT. LOWER LEGS REMAIN SWOLLEN AND REDENNED. PT.STATES THAT THE SWELLING IS LESS AND HE HAS NO PAIN. THERE ARE NO DRAINING AREAS AND LEGS ARE OF NORMAL TEMP. PT.STATES THAT HE HAS NOT SEEN PCP IN 'A WHILE PT.AGREES TO SEE PCP OR ER TOMORROW OR 07/09 FOR EVAL.OF ONGOING EDEMA AND HX OF DVT. HE DENIES ANY CP,SOB,DIET/MED CHANGES,FALLS OR SX OF BLEEDING. CONTINUE PRESENT DOSE AND FOLLOW-UP IN 4 WEEKS. TO CALL [facility] IF ANY QUESTIONS/CONCERNS ARISE. GOOD UNDERSTANDING OF DOSING INSTR.VERB.BY PT. Anti-Coag Initial Assessment Social Hx Smoking packs per day: 0.5 Coding Level of Care Code Est Patient Level 1 Diagnoses Current use of anticoagulant therapy Z79.01 Assessment & Plan Assessment & Plan (1) Current use of anticoagulant therapy: Code(s): Z79.01 - salvage determiner (current) use of anticoagulants Category: Medical
== END 2023-07-08 13:37 | disposition home or self-care (01) ==
LOC: HO.ACS 13:03
PROVIDERS: PCP Internal Medicine; Visit Provider Internal Medicine
DX: Z79.01 Long term (current) use of anticoagulants (principal)

== ENCOUNTER → 2023-07-08 13:03 | Outpatient (BNVA) | payer OTHER, SELFPAY | PROVIDERS: PCP Internal Medicine; Visit Provider Internal Medicine | DX: I82.401 Acute embolism and thrombosis of unspecified deep veins of right lower extremity (principal); Z79.01 Long term (current) use of anticoagulants; Z51.81 Encounter for therapeutic drug level monitoring | CPT/HCPCS: 85610; 99211 ==

== ENCOUNTER 2023-08-05 13:04 | Outpatient (AMB) | payer OTHER, SELFPAY ==
[2023-08-05 13:17] LABS: Prothrombin Time Whole Bld POC 27.8 sec (11.1-13.5); ~PT, ~INR - Anti Coag Clinic 2.3 (0.9-1.1)
--- NOTE | 2023-08-05 13:20 | MHC.OFFVISCO ---
Intake Intake Visit Reasons: Anticoagulation Allergies No Known Allergies [No Known Allergies*] Allergy (Verified 08/05/23 13:08) Medication List - Last Reconciled 08/05/23 by Rain Granados RN acetaminophen ER (Arthritis Pain Relief (acetaminophen) ER) 650 mg PO Q8H amlodipine 10 mg PO DAILY furosemide 40 mg PO DAILY gabapentin 300 mg PO TID rosuvastatin 10 mg PO BEDTIME triamcinolone acetonide 0.1% topical PRN warfarin 4 mg See Protocol PO DAILY Nursing Note INR: 2.3 in therapeutic range Medications and supplements reviewed No changes in health, diet, medications, or supplements, Denies any signs and symptoms of bleeding or bruising or clotting. Bleeding, bruising, clotting discussed Nutritional guidance given Dose: 6MG X 1 DAY/ 4MG X 6 DAYS F/U INR: 4 WEEK Patient verbalizes understanding of instructions given Anti-Coag Initial Assessment Social Hx Smoking packs per day: 0.5 Coding Level of Care Code Est Patient Level 1 Diagnoses Current use of anticoagulant therapy Z79.01 Assessment & Plan Assessment & Plan (1) Current use of anticoagulant therapy: Code(s): Z79.01 - superintendent container terminal (current) use of anticoagulants Category: Medical Medications: New loratadine (Claritin) PO fexofenadine (Makayla Allergy) PO cetirizine (Zyrtec) PO
== END 2023-08-05 13:22 | disposition home or self-care (01) ==
LOC: HO.ACS 13:04
PROVIDERS: PCP Internal Medicine; Visit Provider Internal Medicine
DX: Z79.01 Long term (current) use of anticoagulants (principal)

== ENCOUNTER → 2023-08-05 13:04 | Outpatient (BNVA) | payer OTHER, SELFPAY | PROVIDERS: PCP Internal Medicine; Visit Provider Internal Medicine | DX: Z86.718 Personal history of other venous thrombosis and embolism (principal); Z51.81 Encounter for therapeutic drug level monitoring; Z79.01 Long term (current) use of anticoagulants | CPT/HCPCS: 85610; 99211 ==

== ENCOUNTER 2023-09-02 12:53 | Outpatient (AMB) | payer OTHER, SELFPAY ==
--- NOTE | 2023-09-02 13:17 | MHC.OFFVISCO ---
Intake Intake Visit Reasons: Anticoagulation Allergies No Known Allergies [No Known Allergies*] Allergy (Verified 09/02/23 13:13) Medication List - Last Reconciled 09/02/23 by Nery Holguin RN acetaminophen ER (Arthritis Pain Relief (acetaminophen) ER) 650 mg PO Q8H amlodipine 10 mg PO DAILY cetirizine (Zyrtec) PO fexofenadine (Makayla Allergy) PRN furosemide 40 mg PO DAILY gabapentin 300 mg PO TID loratadine (Claritin) PO rosuvastatin 10 mg PO BEDTIME triamcinolone acetonide 0.1% topical PRN warfarin 4 mg See Protocol PO DAILY Nursing Note INR: 2.9- in therapeutic range of 2-3 Medications and supplements reviewed- no changes No changes in health, diet, medications, or supplements, Denies any signs and symptoms of bleeding or bruising or clotting. Bleeding, bruising, clotting discussed Nutritional guidance given Dose: 4mg x 6, 6mg x 1 F/U INR: 4 weeks Patient verbalizes understanding of instructions given Anti-Coag Initial Assessment Social Hx Smoking packs per day: 0.5 Coding Level of Care Code Est Patient Level 1 Diagnoses Current use of anticoagulant therapy Z79.01 Assessment & Plan Assessment & Plan (1) Current use of anticoagulant therapy: Code(s): Z79.01 - intermediate teacher (current) use of anticoagulants Category: Medical
[2023-09-02 13:19] LABS: Prothrombin Time Whole Bld POC 34.4 sec (11.1-13.5); ~PT, ~INR - Anti Coag Clinic 2.9 (0.9-1.1)
== END 2023-09-02 13:23 | disposition home or self-care (01) ==
LOC: HO.ACS 12:53
PROVIDERS: PCP Internal Medicine; Visit Provider Internal Medicine
DX: Z79.01 Long term (current) use of anticoagulants (principal)

== ENCOUNTER → 2023-09-02 12:53 | Outpatient (BNVA) | payer OTHER, SELFPAY | PROVIDERS: PCP Internal Medicine; Visit Provider Internal Medicine | DX: Z86.718 Personal history of other venous thrombosis and embolism (principal); Z79.01 Long term (current) use of anticoagulants; Z51.81 Encounter for therapeutic drug level monitoring | CPT/HCPCS: 85610; 99211 ==

== ENCOUNTER 2023-09-30 13:02 | Outpatient (AMB) | payer OTHER, SELFPAY ==
[2023-09-30 13:13] LABS: Prothrombin Time Whole Bld POC 35.2 sec (11.1-13.5); ~PT, ~INR - Anti Coag Clinic 2.9 (0.9-1.1)
--- NOTE | 2023-09-30 13:19 | MHC.OFFVISCO ---
Intake Intake Visit Reasons: Anticoagulation Allergies No Known Allergies [No Known Allergies*] Allergy (Verified 09/30/23 13:08) Medication List - Last Reconciled 09/30/23 by Rain Granados RN acetaminophen ER (Arthritis Pain Relief (acetaminophen) ER) 650 mg PO Q8H amlodipine 10 mg PO DAILY cetirizine (Zyrtec) PO fexofenadine (Makayla Allergy) PRN furosemide 40 mg PO DAILY gabapentin 300 mg PO TID loratadine (Claritin) PO rosuvastatin 10 mg PO BEDTIME triamcinolone acetonide 0.1% topical PRN warfarin 4 mg See Protocol PO DAILY Nursing Note INR: 2.9 in therapeutic range Medications and supplements reviewed No changes in health, diet, medications, or supplements, Denies any signs and symptoms of bleeding or bruising or clotting. 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
== END 2023-09-30 13:21 | disposition home or self-care (01) ==
LOC: HO.ACS 13:02
PROVIDERS: PCP Internal Medicine; Visit Provider Internal Medicine
DX: Z79.01 Long term (current) use of anticoagulants (principal)

== ENCOUNTER → 2023-09-30 13:02 | Outpatient (BNVA) | payer OTHER, SELFPAY | PROVIDERS: PCP Internal Medicine; Visit Provider Internal Medicine | DX: Z86.718 Personal history of other venous thrombosis and embolism (principal); Z79.01 Long term (current) use of anticoagulants; Z51.81 Encounter for therapeutic drug level monitoring | CPT/HCPCS: 85610; 99211 ==

== ENCOUNTER 2023-10-28 13:01 | Outpatient (AMB) | payer OTHER, SELFPAY ==
[2023-10-28 13:11] LABS: Prothrombin Time Whole Bld POC 23.4 sec (11.1-13.5); ~PT, ~INR - Anti Coag Clinic 1.9 (0.9-1.1)
--- NOTE | 2023-10-28 13:13 | MHC.OFFVISCO ---
Intake Intake Visit Reasons: Anticoagulation Allergies No Known Allergies [No Known Allergies*] Allergy (Verified 10/28/23 13:06) Medication List - Last Reconciled 10/28/23 by Rain Granados RN acetaminophen ER (Arthritis Pain Relief (acetaminophen) ER) 650 mg PO Q8H amlodipine 10 mg PO DAILY cephalexin 500 mg PO BID cetirizine (Zyrtec) PO fexofenadine (Makayla Allergy) PRN furosemide 40 mg PO DAILY gabapentin 300 mg PO TID loratadine (Claritin) PO rosuvastatin 10 mg PO BEDTIME triamcinolone acetonide 0.1% topical PRN warfarin 4 mg See Protocol PO DAILY Nursing Note INR 1.9? out of therapeutic range Medications and supplements reviewed Patient status: Has antbx for his legs cephalexin 500 po bid - will be completed this SAT, he stated he states he feels so much better all over, but he states he has decreased renal function, this antbx could affect the INR raising it possibly next week. taking tylenol for pain, not using naprosyn or ibuprofen due to decrease renal function. Medications or supplements: antbx to complete Diet: good Denies any signs and symptoms of bleeding or clotting or unusual bruising Bleeding, bruising, clotting discussed Nutritional guidance given: no greens x 2 days, increase greens next week Dose: 6mg x 1 day/ 4mg x 6 days ( antbx may raise the INR) F/U INR Date : 2 weeks?? Patient verbalizing understanding of instructions given. Anti-Coag Initial Assessment Social Hx Smoking packs per day: 0.5 Coding Level of Care Code Est Patient Level 1 Diagnoses Current use of anticoagulant therapy Z79.01 Results AMB INR Fingerstick AMB INR Fingerstick 1.9 Last Edit by Rain Granados RN on 10/28/23 13:11 manual entry Assessment & Plan Assessment & Plan (1) Current use of anticoagulant therapy: Code(s): Z79.01 - [facility] (current) use of anticoagulants Category: Medical
== END 2023-10-28 13:28 | disposition home or self-care (01) ==
LOC: HO.ACS 13:01
PROVIDERS: PCP Internal Medicine; Visit Provider Internal Medicine
DX: Z79.01 Long term (current) use of anticoagulants (principal)

== ENCOUNTER → 2023-10-28 13:01 | Outpatient (BNVA) | payer OTHER, SELFPAY | PROVIDERS: PCP Internal Medicine; Visit Provider Internal Medicine | DX: Z86.718 Personal history of other venous thrombosis and embolism (principal); Z79.01 Long term (current) use of anticoagulants; Z51.81 Encounter for therapeutic drug level monitoring | CPT/HCPCS: 85610; 99211 ==

== ENCOUNTER 2023-11-11 13:04 | Outpatient (AMB) | payer OTHER, SELFPAY ==
[2023-11-11 13:13] LABS: Prothrombin Time Whole Bld POC 33.4 sec (11.1-13.5); ~PT, ~INR - Anti Coag Clinic 2.8 (0.9-1.1)
--- NOTE | 2023-11-11 13:14 | MHC.OFFVISCO ---
Intake Intake Visit Reasons: Anticoagulation Allergies No Known Allergies [No Known Allergies*] Allergy (Verified 11/11/23 13:05) Medication List - Last Reconciled 11/11/23 by Rain Granados RN acetaminophen ER (Arthritis Pain Relief (acetaminophen) ER) 650 mg PO Q8H amlodipine 10 mg PO DAILY cetirizine (Zyrtec) PO fexofenadine (Makayla Allergy) PRN furosemide 40 mg PO DAILY gabapentin 300 mg PO TID loratadine (Claritin) PO rosuvastatin 10 mg PO BEDTIME triamcinolone acetonide 0.1% topical PRN warfarin 4 mg See Protocol PO DAILY Nursing Note INR: 2.8 in therapeutic range Medications and supplements reviewed No changes in health, diet, medications, or supplements, Denies any signs and symptoms of bleeding or bruising or clotting. Bleeding, bruising, clotting discussed Nutritional guidance given Dose: 6MG X 1 DAY/ 4MG X 6 DAYS F/U INR: 4 WEEKS Patient verbalizes understanding of instructions given Anti-Coag Initial Assessment Social Hx Smoking packs per day: 0.5 Coding Level of Care Code Est Patient Level 1 Diagnoses Current use of anticoagulant therapy Z79.01 Results AMB INR Fingerstick AMB INR Fingerstick 2.8 Last Edit by Rain Granados RN on 11/11/23 13:15 FAILED INTERFACING ONGOING MANUAL ENTRY Assessment & Plan Assessment & Plan (1) Current use of anticoagulant therapy: Code(s): Z79.01 - buttermilk drier operator (current) use of anticoagulants Category: Medical
== END 2023-11-11 13:19 | disposition home or self-care (01) ==
LOC: HO.ACS 13:04
PROVIDERS: PCP Internal Medicine; Visit Provider Internal Medicine
DX: Z79.01 Long term (current) use of anticoagulants (principal)

== ENCOUNTER → 2023-11-11 13:04 | Outpatient (BNVA) | payer OTHER, SELFPAY | PROVIDERS: PCP Internal Medicine; Visit Provider Internal Medicine | DX: Z86.718 Personal history of other venous thrombosis and embolism (principal); Z79.01 Long term (current) use of anticoagulants; Z51.81 Encounter for therapeutic drug level monitoring | CPT/HCPCS: 85610; 99211 ==

== ENCOUNTER 2023-12-09 12:56 | Outpatient (AMB) | payer OTHER, SELFPAY ==
[2023-12-09 13:06] LABS: Prothrombin Time Whole Bld POC 31.1 sec (11.1-13.5); ~PT, ~INR - Anti Coag Clinic 2.6 (0.9-1.1)
--- NOTE | 2023-12-09 13:13 | MHC.OFFVISCO ---
Intake Intake Visit Reasons: Anticoagulation Allergies No Known Allergies [No Known Allergies*] Allergy (Verified 12/09/23 13:02) Medication List - Last Reconciled 12/09/23 by Archana Montes RN acetaminophen ER (Arthritis Pain Relief (acetaminophen) ER) 650 mg PO Q8H amlodipine 10 mg PO DAILY cetirizine (Zyrtec) PO fexofenadine (Makayla Allergy) PRN furosemide 40 mg PO DAILY gabapentin 300 mg PO TID loratadine (Claritin) PO rosuvastatin 10 mg PO BEDTIME triamcinolone acetonide 0.1% topical PRN warfarin 4 mg See Protocol PO DAILY Nursing Note Pt to ACS with use of crutches. States he has bad arthritis INR: 2.6 in therapeutic range of 2-3 Medications and supplements reviewed No changes in health, diet, medications, or supplements, Denies any signs and symptoms of bleeding or bruising or clotting. Bleeding, bruising, clotting discussed Nutritional guidance given Dose: 4mg X 6 days and 6mg X 1 day F/U INR: 4 weeks Patient verbalizes understanding of instructions given Anti-Coag Initial Assessment Social Hx Smoking packs per day: 0.5 Coding Level of Care Code Est Patient Level 1 Diagnoses Current use of anticoagulant therapy Z79.01 Assessment & Plan Assessment & Plan (1) Current use of anticoagulant therapy: Code(s): Z79.01 - skilled nursing (current) use of anticoagulants Category: Medical
== END 2023-12-09 13:18 | disposition home or self-care (01) ==
LOC: HO.ACS 12:56
PROVIDERS: PCP Internal Medicine; Visit Provider Internal Medicine
DX: Z79.01 Long term (current) use of anticoagulants (principal)

== ENCOUNTER → 2023-12-09 12:56 | Outpatient (BNVA) | payer OTHER, SELFPAY | PROVIDERS: PCP Internal Medicine; Visit Provider Internal Medicine | DX: Z86.718 Personal history of other venous thrombosis and embolism (principal); Z79.01 Long term (current) use of anticoagulants; Z51.81 Encounter for therapeutic drug level monitoring | CPT/HCPCS: 85610; 99211 ==

== ENCOUNTER 2024-01-06 13:07 | Outpatient (AMB) | payer OTHER, SELFPAY ==
[2024-01-06 13:12] LABS: ~PT, ~INR - Anti Coag Clinic 2.9 (0.9-1.1)
--- NOTE | 2024-01-06 13:15 | MHC.OFFVISCO ---
Intake Intake Visit Reasons: Anticoagulation Allergies No Known Allergies [No Known Allergies*] Allergy (Verified 01/06/24 13:07) Medication List - Last Reconciled 01/06/24 by Rain Granados RN acetaminophen ER (Arthritis Pain Relief (acetaminophen) ER) 650 mg PO Q8H amlodipine 10 mg PO DAILY cetirizine (Zyrtec) PO fexofenadine (Makayla Allergy) PRN furosemide 40 mg PO DAILY gabapentin 300 mg PO TID loratadine (Claritin) PO rosuvastatin 10 mg PO BEDTIME triamcinolone acetonide 0.1% topical PRN warfarin 4 mg See Protocol PO DAILY Nursing Note INR: 2.9 in therapeutic range Medications and supplements reviewed No changes in health, diet, medications, or supplements, Denies any signs and symptoms of bleeding or bruising or clotting. Bleeding, bruising, clotting discussed Nutritional guidance given Dose: 6MG X 1 DAY/ 4MG X 6 DAYS F/U INR: 4 WEEKS Patient verbalizes understanding of instructions given Anti-Coag Initial Assessment Social Hx Smoking packs per day: 0.5 Questionnaires HAS-BLED Does the patient had uncontrolled Hypertension?: No Does the patient have renal disease?: Yes Does the patient have liver disease?: No Does the patient have a history of stroke?: No Has the patient had major bleeding or predisposition to bleeding?: No Does the patient have labile INRs?: No Is the patient over 65 years of age?: No Is the patient on medications that gives them a predisposition to bleeding?: Yes Does the patient use alcohol?: No HAS-BLED Score: 2 CHADSVASC Age: <65 Gender: Male Does the patient have a history of CHF?: No Does the patient have a history of Hypertension?: Yes Does the patient have a history of Stroke/TIA/Thromboembolism?: Yes Does the patient have a history of Vascular Disease (prior LA, PAD or aortic plaque)?: No Does the patient have a history of Diabetes?: No CHADS VACS Score: 3 Nate Prediction Score Rsk VTE Active Cancer: No Previous VTE, excluding superficial vein thrombosis: Yes Reduced mobility: Yes Already known Thrombophilic Condition: No With-in last month Trauma and/or Surgery: No Elderly 70 year or older: No Heart and/or Respiratory Failure: No Acute Myocardial infarction and/or Ischemic Stroke: No Acute Infection and/or Rheumatologic Disorder: Yes Obesity (BMI 30 or greater): Yes Ongoing Hormonal Treatment: No Score: 8 Nate Score less than 4; Low Risk of VTE Nate Score 4 or greater; High Risk of VTE Coding Level of Care Code Est Patient Level 1 Diagnoses Current use of anticoagulant therapy Z79.01 Assessment & Plan Assessment & Plan (1) Current use of anticoagulant therapy: Code(s): Z79.01 - detention (current) use of anticoagulants Category: Medical
== END 2024-01-06 13:23 | disposition home or self-care (01) ==
LOC: HO.ACS 13:07
PROVIDERS: PCP Internal Medicine; Visit Provider Internal Medicine
DX: Z79.01 Long term (current) use of anticoagulants (principal)

== ENCOUNTER → 2024-01-06 13:07 | Outpatient (BNVA) | payer OTHER, SELFPAY | PROVIDERS: PCP Internal Medicine; Visit Provider Internal Medicine | DX: Z86.718 Personal history of other venous thrombosis and embolism (principal); Z79.01 Long term (current) use of anticoagulants; Z51.81 Encounter for therapeutic drug level monitoring | CPT/HCPCS: 85610; 99211 ==

== ENCOUNTER 2024-02-03 13:28 | Outpatient (AMB) | payer OTHER, SELFPAY ==
--- NOTE | 2024-02-03 13:52 | MHC.OFFVISCO ---
Intake Intake Visit Reasons: Anticoagulation Allergies No Known Allergies [No Known Allergies*] Allergy (Verified 02/03/24 13:39) Medication List - Last Reconciled 02/03/24 by Rain Granados RN acetaminophen ER (Arthritis Pain Relief (acetaminophen) ER) 650 mg PO Q8H amlodipine 10 mg PO DAILY cetirizine (Zyrtec) PO fexofenadine (Makayla Allergy) PRN furosemide 40 mg PO DAILY gabapentin 300 mg PO TID loratadine (Claritin) PO rosuvastatin 10 mg PO BEDTIME triamcinolone acetonide 0.1% topical PRN warfarin 4 mg See Protocol PO DAILY Nursing Note INR: 2.2 in therapeutic range Medications and supplements reviewed No changes in health, diet, medications, or supplements, Denies any signs and symptoms of bleeding or bruising or clotting. Bleeding, bruising, clotting discussed Nutritional guidance given Dose: 6MG X 1 DAY/ 4MG X 6 DAYS F/U INR: 1 MONTH Patient verbalizes understanding of instructions given Anti-Coag Initial Assessment Social Hx Smoking packs per day: 0.5 Coding Level of Care Code Est Patient Level 1 Diagnoses Current use of anticoagulant therapy Z79.01 Results AMB INR Fingerstick AMB INR Fingerstick 2.2 Last Edit by Rain Granados RN on 02/03/24 13:47 MANUAL ENTRY Assessment & Plan Assessment & Plan (1) Current use of anticoagulant therapy: Code(s): Z79.01 - bed bug exterminator (current) use of anticoagulants Category: Medical
[2024-02-03 13:56] LABS: ~PT, ~INR - Anti Coag Clinic 2.2 (0.9-1.1)
== END 2024-02-03 13:55 | disposition home or self-care (01) ==
LOC: HO.ACS 13:28
PROVIDERS: PCP Internal Medicine; Visit Provider Internal Medicine
DX: Z79.01 Long term (current) use of anticoagulants (principal)

== ENCOUNTER → 2024-02-03 13:28 | Outpatient (BNVA) | payer OTHER, SELFPAY | PROVIDERS: PCP Internal Medicine; Visit Provider Internal Medicine | DX: Z86.718 Personal history of other venous thrombosis and embolism (principal); Z79.01 Long term (current) use of anticoagulants; Z51.81 Encounter for therapeutic drug level monitoring | CPT/HCPCS: 85610; 99211 ==

== ENCOUNTER 2024-03-02 13:01 | Outpatient (AMB) | payer OTHER, SELFPAY ==
--- NOTE | 2024-03-02 13:08 | MHC.OFFVISCO ---
Intake Intake Visit Reasons: Anticoagulation Allergies No Known Allergies [No Known Allergies*] Allergy (Verified 03/02/24 13:04) Medication List - Last Reconciled 03/02/24 by Archana Montes RN acetaminophen ER (Arthritis Pain Relief (acetaminophen) ER) 650 mg PO Q8H amlodipine 10 mg PO DAILY cetirizine (Zyrtec) PO fexofenadine (Makayla Allergy) PRN furosemide 40 mg PO DAILY gabapentin 300 mg PO TID loratadine (Claritin) PO rosuvastatin 10 mg PO BEDTIME triamcinolone acetonide 0.1% topical PRN warfarin 4 mg See Protocol PO DAILY Nursing Note INR: 3.2 in therapeutic range 2-3 Medications and supplements reviewed No changes in health, diet, medications, or supplements, Denies any signs and symptoms of bleeding or bruising or clotting. Bleeding, bruising, clotting discussed Nutritional guidance given to have a serving of greens today Dose: decrease this week's total dose by 2mg then 4mg X 6 days and 6mg X 1 days (Wed) F/U INR: 4 weeks Patient verbalizes understanding of instructions given Anti-Coag Initial Assessment Social Hx Smoking packs per day: 0.5 Coding Level of Care Code Est Patient Level 1 Diagnoses Current use of anticoagulant therapy Z79.01 Results AMB INR Fingerstick AMB INR Fingerstick 3.2 Last Edit by Archana Montes RN on 03/02/24 13:09 interface delay Assessment & Plan Assessment & Plan (1) Current use of anticoagulant therapy: Code(s): 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
[2024-03-02 13:09] LABS: Prothrombin Time Whole Bld POC 38.5 sec (11.1-13.5); ~PT, ~INR - Anti Coag Clinic 3.2 (0.9-1.1)
== END 2024-03-02 13:18 | disposition home or self-care (01) ==
LOC: HO.ACS 13:01
PROVIDERS: PCP Internal Medicine; Visit Provider Internal Medicine
DX: Z79.01 Long term (current) use of anticoagulants (principal)

== ENCOUNTER → 2024-03-02 13:01 | Outpatient (BNVA) | payer OTHER, SELFPAY | PROVIDERS: PCP Internal Medicine; Visit Provider Internal Medicine | DX: Z86.718 Personal history of other venous thrombosis and embolism (principal); Z79.01 Long term (current) use of anticoagulants; Z51.81 Encounter for therapeutic drug level monitoring | CPT/HCPCS: 85610; 99211 ==

== ENCOUNTER 2024-03-30 13:02 | Outpatient (AMB) | payer OTHER, SELFPAY ==
[2024-03-30 13:14] LABS: Prothrombin Time Whole Bld POC 35.7 sec (11.1-13.5)
--- NOTE | 2024-03-30 13:18 | MHC.OFFVISCO ---
Intake Intake Visit Reasons: Anticoagulation Allergies No Known Allergies [No Known Allergies*] Allergy (Verified 03/30/24 13:04) Medication List - Last Reconciled 03/30/24 by Archana Montes RN acetaminophen ER (Arthritis Pain Relief (acetaminophen) ER) 650 mg PO Q8H amlodipine 10 mg PO DAILY cetirizine (Zyrtec) PO fexofenadine (Makayla Allergy) PRN furosemide 40 mg PO DAILY gabapentin 300 mg PO TID loratadine (Claritin) PO rosuvastatin 10 mg PO BEDTIME triamcinolone acetonide 0.1% topical PRN warfarin 4 mg See Protocol PO DAILY Nursing Note INR: 3.0 in therapeutic range of 2-3 Medications and supplements reviewed No changes in health, diet, medications, or supplements, Denies any signs and symptoms of bleeding or bruising or clotting. Bleeding, bruising, clotting discussed Nutritional guidance given to have a serving of greens today Dose: 4mg X 6 days and 6mg X 1 day F/U INR: 4 weeks Patient verbalizes understanding of instructions given Anti-Coag Initial Assessment Social Hx Smoking packs per day: 0.5 Coding Level of Care Code Est Patient Level 1 Diagnoses Current use of anticoagulant therapy Z79.01 Results AMB INR Fingerstick AMB INR Fingerstick 3.0 Last Edit by Archana Montes RN on 03/30/24 13:13 interface delay Assessment & Plan Assessment & Plan (1) Current use of anticoagulant therapy: Code(s): Z79.01 - jail (current) use of anticoagulants Category: Medical
== END 2024-03-30 13:21 | disposition home or self-care (01) ==
LOC: HO.ACS 13:02
PROVIDERS: PCP Internal Medicine; Visit Provider Internal Medicine
DX: Z79.01 Long term (current) use of anticoagulants (principal)

== ENCOUNTER → 2024-03-30 13:02 | Outpatient (BNVA) | payer OTHER, SELFPAY | PROVIDERS: PCP Internal Medicine; Visit Provider Internal Medicine | DX: Z86.718 Personal history of other venous thrombosis and embolism (principal); Z79.01 Long term (current) use of anticoagulants; Z51.81 Encounter for therapeutic drug level monitoring | CPT/HCPCS: 85610; 99211 ==

== ENCOUNTER 2024-05-03 13:00 | Outpatient (AMB) | payer OTHER, SELFPAY ==
--- NOTE | 2024-05-03 13:09 | MHC.OFFVISCO ---
Intake Intake Visit Reasons: Anticoagulation Allergies No Known Allergies [No Known Allergies*] Allergy (Verified 05/03/24 13:05) Medication List - Last Reconciled 05/03/24 by Nery Holguin RN acetaminophen ER (Arthritis Pain Relief (acetaminophen) ER) 650 mg PO Q8H amlodipine 10 mg PO DAILY cetirizine (Zyrtec) PO fexofenadine (Makayla Allergy) PRN furosemide 40 mg PO DAILY gabapentin 300 mg PO TID loratadine (Claritin) PO rosuvastatin 10 mg PO BEDTIME triamcinolone acetonide 0.1% topical PRN warfarin 4 mg See Protocol PO DAILY Nursing Note INR 3.6-? out of therapeutic range Medications and supplements reviewed Patient status: to acs in w/c, uses crutches Medications or supplements: no changes Diet: same Denies any signs and symptoms of bleeding or clotting or unusual bruising Bleeding, bruising, clotting discussed Nutritional guidance given: eat greens to lower today and tomm, no reds for 2 days Dose: pt states already took dose today- take 2 mg tomm, then cont 4mg x 6, 6mg x 1 F/U INR Date : 2 weeks? Patient verbalizing understanding of instructions given. Anti-Coag Initial Assessment Social Hx Smoking packs per day: 0.5 Coding Level of Care Code Est Patient Level 1 Diagnoses Current use of anticoagulant therapy Z79.01 Assessment & Plan Assessment & Plan (1) Current use of anticoagulant therapy: Code(s): Z79.01 - FDC (current) use of anticoagulants Category: Medical
[2024-05-03 13:11] LABS: Prothrombin Time Whole Bld POC 42.8 sec (11.1-13.5); ~PT, ~INR - Anti Coag Clinic 3.6 (0.9-1.1)
--- OUTSIDE RECORDS SUMMARY | 2024-05-03 14:20 | XMS_ITS | Clinical Summary ---
Author Organization [facility] Address [address] [place] [address] Phone Care Team Providers Care Renewals Manager Name Role Phone Joleen Simon MD Primary Care Provider [phone] Allergies No known active allergies Medications warfarin (COUMADIN) 4 MG tablet 07/23/2021 Active OxyCONTIN 10 MG 12 hr abuse-deterrent tablet 5 mg 07/17/2021 Active gabapentin (NEURONTIN) 300 MG capsule 300 mg 07/09/2021 Active furosemide (LASIX) 40 MG tablet 20 mg 07/09/2021 Active ProAir RespiClick 108 (90 Base) MCG/ACT aerosol powder 07/09/2021 Active acetaminophen (TYLENOL) 325 MG tablet Take by mouth every 6 (six) hours if needed for mild pain Active Active Problems Problem Noted Date Diagnosed Date Stage 3b chronic kidney disease 02/08/2023 Mixed hyperlipidemia 02/01/2023 02/08/2023 Overview (02/08/2023): Last Assessment & Plan: Given risk factors, I am starting him on low-dose rosuvastatin 10 mg at bedtime-should be uptitrated to maximal tolerated dose, reviewed side effects with the patient who verbalized understanding and wishes to proceed, counseled him on the importance of avoidance of processed or packaged foods-he seems to have an excuse or answer to every piece of advice to give him some not certain he has the insight to make the best health choices-and to that extent, it might be good to get him on lipid-lowering therapy Hypertension 07/20/2022 02/08/2023 Overview (02/08/2023): - Had cellulitis left lower extremity of his left lower extremity leading to bacteremia and sepsis syndrome - More recently has had good control of edema on current Lasix and no venous ulcerations Last Assessment & Plan: Reasonable control of edema which remains mild and peripheral though it is difficult to assess central volume status due to body habitus, continue current dose of Lasix 40 mg daily, recommended he keep an eye out for worsening edema now that I have told him again to increase his amlodipine to 10 mg for better blood pressure control Last Assessment & Plan: Suboptimally controlled but because he does not regularly take 10 mg of amlodipine-reiterated that he should be taking it as 10 mg daily, recommended daily weights though patient does not have access to a scale, recommended 1500 mg or less of sodium per day and advised him to read labels as many processed foods have sodium in them Heart failure with normal ejection fraction 06/2102/08/2023 Overview (02/08/2023): - Hospitalized in June 2021 at [facility] with CHF exacerbation in the setting of having lower extremity cellulitis as well- ultimately ended up getting IV Lasix a few doses but unfortunately suffered severe acute kidney injury with creatinine peaking around 3.5 - Was treated for sepsis syndrome with coag negative staph bacteremia for which she has completed long-term antibiotic course - Eventually renal function did recover - More recently he has been doing well on his current dose of Lasix - Echocardiogram during his hospitalization showed normal left ventricular size and systolic function, normal regional wall motion ejection fraction of 55 to 60%, normal left ventricular diastolic function, moderate right ventricular enlargement with normal systolic function, no hemodynamically significant valve disease Last Assessment & Plan: Reasonably euvolemic today, continue current Lasix 40 mg daily Cellulitis of lower limb 07/17/2022 023 Stage 3 chronic kidney disease 07/24/2021 Hyperkalemia 07/24/2021 Hematuria 07/24/2021 Type 2 diabetes mellitus without complication Chronic kidney disease, stage 4 (severe) 022 Renal osteodystrophy 07/24/2021 Social History Tobacco Use Types Packs/Day Years Used Date Smoking Tobacco: Never Assessed Tobacco Cessation:Counseling Given: No Alcohol Use Standard Drinks/Week Comments Never 0 (1 standard drink = 0.6 oz pur e alcohol) Sex and Gender Information Value Date Recorded Sex Assigned at Not on file Legal Sex Male 8:34 AM EDT Gender Identity Not on file Sexual Orientation Not on file Last Filed Vital Signs Vital Sign Reading Time Taken Comments Blood Pressure 163/62 02/08/2023 4:21 PM EST Pulse 74 02/08/2023 4:21 PM EST Temperature - - Respiratory Rate - - Oxygen Saturation 98% 02/08/2023 4:21 PM EST Inhaled Oxygen Concentration - - Weight 144 kg (318 lb) 02/08/2023 4:21 PM EST Height - - Body Mass Index - - Plan of Treatment Health Maintenance Due Date Last Done Comments Pneumococcal Vaccine: Pediat rics (0 to 5 Years) and At-Risk Patients (6 to 64 Years) (1 of 2 - PCV) 1970 Hepatitis B Vaccine (1 of 3 - 19+ 3-dose series) 07/10 Colorectal Cancer Screening: Annual FOBT 2013 Colorectal Cancer Screening: Colonoscopy 2013 Colorectal Cancer Screening: Sigmoidoscopy 2013 Diabetes: Hemoglobin A1C 07/24/2021 Diabetes: Ophthalmology Exam 07/24/2021 Diabetes: Pedal Pulse Checked 07/24/2021 Diabetes: Sensory Foot Exam 07/24/2021 Diabetes: Visual Foot Exam 07/24/2021 Influenza Vaccine (#1) 2023 Insurance [facility] Care Teams Renewals Manager Relationship Specialty Start Date End Date Joleen Simon MD [address] [place] [address] PCP - General Family Medicine 06/30/21
--- OUTSIDE RECORDS SUMMARY | 2024-05-03 14:20 | XMS_ITS | Encounter Summary ---
Author Organization [facility] Address [id number] [place] [id number] Care Team Providers Care Granite Cutter Name Role Phone Antwon Rodriguez MD Primary Care Provider [phone] Reason for Visit * Reason Comments Follow-up Encounter Details Date Type Department Care Team (Late st Contact Info) Description 04/07/2024 2:30 PM EST Office Visit [facility] [address] [facility] [address] [place] [phone] Lizeth Verdin MD [address] [place] [address] Chronic heart failure with preserved ejection fraction (CMS/HCC) (Primary Dx); Hypertension, unspecified type; Venous insufficiency of both lower extremities Social History Tobacco Use Types Packs/Day Years Used Date Smoking Tobacco: Every Day Cigarettes Tobacco Cessation:Ready to Q uit: Not Asked; Counseling Given: Not Answered Comments:1/2 pack daily Alcohol Use Standard Drinks/Week Comments Not Currently 0 (1 standard drink = 0.6 oz pur e alcohol) Sex and Gender Information Value Date Recorded Sex Assigned at Not on file Legal Sex Male 9:21 AM EST Gender Identity Not on file Sexual Orientation Not on file documented as of this encounter Last Filed Vital Signs Vital Sign Reading Time Taken Comments Blood Pressure 150/70 04/07/2024 3:09 PM EST Pulse 51 04/07/2024 2:40 PM EST Temperature - - Respiratory Rate - - Oxygen Saturation 97% 04/07/2024 2:40 PM EST Inhaled Oxygen Concentration - - Weight 141 kg (311 lb) 04/07/2024 2:40 PM EST Height 175.3 cm (5' 9 ) 04/07/2024 2:40 PM EST Body Mass Index 45.93 04/07/2024 2:40 PM EST documented in this encounter Progress Notes * Lizeth Verdin MD - 04/07/2024 2:30 PM ESTAssociated Problem(s): Hypertension - Blood pressure readings have consistently been elevated; today's reading was 150/70, which is an improvement but still not within the normal range. - Monitor blood pressure at home and report any significant changes - Referral to Dr. Michael Kapoor for further evaluation and management Orders: ECG 12 lead * Lizeth Verdin MD - 04/07/2024 2:30 PM ESTAssociated Problem(s): (HFpEF) heart failure with preserved ejection fraction (CMS/HCC) Patient is centrally euvolemic and currently on furosemide and amlodipine 10 mg daily; leg swellinghas improved with elevation. - Continue current medication regimen - Elevate legs to manage swelling which are more likely due to venous insufficiency than heart failure * Lizeth Verdin MD - 04/07/2024 2:30 PM ESTAssociated Problem(s): Venous insufficiency of both lower extremities - Improvement in leg swelling with elevation; redness in skin attributed to likely stasis dermatitis and not considered dangerous. - Continue elevating legs - Monitor for any changes * Lizeth Verdin MD - 04/07/2024 2:30 PM EST Who presents for cardiac follow-up of the below mentioned issues. All in all, he is doing well froma cardiac standpoint without signs or symptoms of central congestion * Lizeth Verdin MD - 04/07/2024 2:30 PM EST [facility] PCP: Antwon Rodriguez MD BACKGROUND CARDIAC HISTORY: Osvaldo Nicole is a 58 y.o. old male who presents for cardiac follow up of: 1. HFpEF 2. Hypertension 3. Venous insufficiency He also has a history of chronic kidney disease with most recent baseline creatinine around 1.9-2, for which he has also been referred to nephrology, chronic VTE-for which he is maintained on Coumadin, severe osteoarthritis. I have obtained verbal consent from Osvaldo Nicole prior to the recording. I have advised Osvaldo Nicole that he may refuse the recording and require the recording to be turned off at any time during this encounter. History of Present Illness He has been experiencing arthritis for an extended period, initially presenting in his leg and progressively worsening over the years. He reports severe pain due to [id number] contact and bone spurs on both sides. He experiences sharp, shooting pain when his bones lock in an incorrect position and then release. He lives independently in a federal housing apartment, with neighbors providing occasional assistance. He does not have a visiting nurse. 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 He has been attempting to arrange for cleaning assistance but has been unsuccessful thus far. He has not had any recent hospital or ER visits. He is under the care of Dr. Michael Nye, who prescribed antibiotics during their last visit in October 2023. He is currently on gabapentin, taken once in the morning and occasionally twice daily, and Tylenol. He does occasionally get postural lightheadedness. He thinks that this is related partially to gabapentin use. This has not been occurring with increasing frequency but occurs every once in a while. He denies syncope. He reports an improvement in his leg swelling, attributing it to the elevation of his leg. He notesthat his skin has turned red. He does not have access to a blood pressure cuff at home. He has beenexperiencing episodes of lightheadedness, with a recent episode occurring a few days ago. He is currently on furosemide and amlodipine 10 mg daily. He is supposed to see a burling and joining supervisor but has not yet done so. ACTIVE MEDICATIONS: Current Outpatient Medications Medication Instructions acetaminophen (TYLENOL 8 HOUR) 650 mg 8 hr tablet Take 1 Tablet by mouth every 8 hours as needed. amLODIPine (NORVASC) 5 mg tablet Take 2 Tablets by mouth daily. furosemide (LASIX) 40 mg tablet Take 1 Tablet by mouth daily. gabapentin (NEURONTIN) 300 mg, oral, 3 times daily rosuvastatin (CRESTOR) 10 mg, oral, Nightly warfarin (COUMADIN) 4 mg tablet Take 1-2 Tablets by mouth daily. Or as directed by the coumadin clinic May cause heavy bleeding. Take at same time every day. Do not change dietary habits. PAST MEDICAL HISTORY: Patient Active Problem List Diagnosis (HFpEF) heart failure with preserved ejection fraction (CMS/HCC) Cellulitis of both lower extremities Hypertension Mixed hyperlipidemia Venous insufficiency of both lower extremities ALLERGIES: No Known Allergies SOCIAL HISTORY: Social History Tobacco Use Smoking status: Every Day Current packs/day: 0.50 Types: Cigarettes Smokeless tobacco: Not on file Tobacco comments: 1/2 pack daily Substance Use Topics Alcohol use: Not Currently PHYSICAL EXAM: Vitals: 04/07/24 1440 04/07/24 1509 BP: (!) 160/72 (!) 150/70 BP Location: Right arm Patient Position: Sitting BP Cuff Size: Large adult Pulse: 51 SpO2: 97% Weight: 141 kg (311 lb) Height: 1.753 m (69 ) APPEARANCE: Alert and in no acute distress EYES: PERRL, conjunctiva and sclera normal NECK: Neck supple, no JVD HEART: RRR with normal S1 and S2, 2 out of 6 systolic ejection murmurs, no gallops LUNG: No respiratory distress or accessory muscle use, clear to auscultation bilaterally EXTREMITIES: Extremities warm and well perfused with stasis dermatitis changes of the bilateral pretibial surfaces, trace to 1+ distal lower extremity edema bilaterally NEURO: Awake, alert and oriented x 3, Cranial nerves II-XII grossly intact SKIN: Skin color, texture, turgor normal. No obvious rashes or lesions. PSYCH: Blunted affect, answers questions appropriately and is cooperative with exam MSK: Moves all extremities normally, gait is very unsteady, ambulates with a cane EKG: Encounter Date: 04/07/24 ECG 12 lead Result Value Ventricular Rate ECG 51 Atrial Rate 51 P-R Interval 180 QRS Duration 96 Q-T Interval 460 QTc 423 P Wave [place] 38 R [place] 37 T [place] 59 ECG Interpretation Sinus bradycardia Otherwise normal ECG When compared with ECG of 03-JUL-2021 13:40, No significant change was found *Note: Due to a large number of results and/or encounters for the requested time period, some results have not been displayed. A complete set of results can be found in Results Review. TESTING: Lab Results Component Value Date CHOL 137 10/20/2023 Lab Results Component Value Date HDL 35 (A) 10/20/2023 No results found for: LDLCALC Lab Results Component Value Date TRIG 245 (A) 10/20/2023 No results found for: CHOLHDL 58 y.o. male who presents for. He does struggle with venous insufficiency which he seems to be managing okay. Please see problem specific recommendations below. I will plan to see him again in 6 months. Assessment & Plan Hypertension, unspecified type - Blood pressure readings have consistently been elevated; today's reading was 150/70, which is an improvement but still not within the normal range. - Monitor blood pressure at home and report any significant changes - Referral to Dr. Michael Kapoor for further evaluation and management Orders: ECG 12 lead Chronic heart failure with preserved ejection fraction (CMS/HCC) Patient is centrally euvolemic and currently on furosemide and amlodipine 10 mg daily; leg swellinghas improved with elevation. - Continue current medication regimen - Elevate legs to manage swelling which are more likely due to venous insufficiency than heart failure Venous insufficiency of both lower extremities - Improvement in leg swelling with elevation; redness in skin attributed to likely stasis dermatitis and not considered dangerous. - Continue elevating legs - Monitor for any changes Thank you for allowing us to participate in the care of this patient. CC: Antwon Rodriguez MD The [facility] team will continue to co-manage this patient following the plan of care as established by my initial visit and as per AHA guidelines for ongoing management and surveillance of the above-mentioned problems . This will include medication titration, initiation of appropriate medications and further titration, and diagnostic studies to manage this disease process. This note was dictated using voice recognition software. Please pardon any grammatical or syntax errors. [facility] documented in this encounter Plan of Treatment Not on file documented as of this encounter Procedures Procedure Name Priority Date/Time Associated Diagnosis Comments ECG 12-LEAD Routine 04/07/2024 2:47 PM EST Hypertension, unspecified type documented in this encounter Results * ECG 12 lead (04/07/2024 2:47 PM EST) Ventricular Rate ECG 51 BPM GEMUSE Atrial Rate 51 BPM GEMUSE P-R Interval 180 ms GEMUSE QRS Duration 96 ms GEMUSE Q-T Interval 460 ms GEMUSE QTc 423 ms GEMUSE P Wave [place] 38 degrees GEMUSE R [place] 37 degrees GEMUSE T [place] 59 degrees GEMUSE ECG Interpretation Sinus bradycardia Otherwise normal ECG When compared with ECG of 03-JUL-2021 13:40, No significant change was found Confirmed by LIZETH VERDIN ([id number]) on 04/07/2024 6:00:33 PM GEMUSE 04/07/2024 2:47 PM EST 04/07/2024 6:00 PM EST us Lizeth Verdin MD ECG ORDERABLES Final Result GEMUSE documented in this encounter Visit Diagnoses Diagnosis Chronic heart failure with preserved ejection fraction (CMS/HCC)- Primary Hypertension, unspecified type Venous insufficiency of both lower extremities documented in this encounter Discontinued Medications Medication Sig Discontinue Reason Start Date End Da te rosuvastatin (Ezallor Sprinkle) 10 mg capsule, sprinkle Take 1 Tablet by mouth at bedtime. Duplicate order 02/01/2023 04/07/2024 rosuvastatin (Ezallor Sprinkle) 10 mg capsule, sprinkle Take 1 Tablet by mouth at bedtime. Duplicate order 02/01/2023 04/07/2024 documented as of this encounter Care Teams Granite Cutter Relationship Specialty Start Date End Date Antwon Rodriguez MD [address] [id number] PCP - General Internal Medicine 04/05/24 documented as of this encounter
--- OUTSIDE RECORDS SUMMARY | 2024-05-03 14:20 | XMS_ITS | Encounter Summary ---
Author Organization [email or web address] Address [address] [place] [address] [address] [place] [address] Care Team Providers Care Metal Numerical Control Programmer Name Role Phone Joleen Simon MD Primary Care Provider [phone] Encounter Details Date Type Department Care Team (Latest Contact Info) Description 05/30/2019 Abstract [facility] CONVERSIONS Dental, Provider, DDS Social History Tobacco Use Types Packs/Day Years Used Date Smoking Tobacco: Never Assessed Sex and Gender Information Value Date Recorded Sex Assigned at Male 01/19/2022 10:18 AM EDT Legal Sex Male 10:18 AM EDT Gender Identity Male 01/19/2022 10:18 AM EDT Sexual Orientation Straight 01/19/2022 10 :18 AM EDT documented as of this encounter Plan of Treatment Not on file documented as of this encounter Visit Diagnoses Not on filedocumented in this encounter Care Teams Metal Numerical Control Programmer Relationship Specialty Start Date End Date Joleen Simon MD [address] [place] [id number] PCP - General Family Medicine 11/23/12 10/21/23 documented as of this encounter
--- OUTSIDE RECORDS SUMMARY | 2024-05-03 14:20 | XMS_ITS | Encounter Summary ---
Author Organization [facility] Address [address] [place] [phone] Care Team Providers Care Production Tool Engineer Name Role Phone Antwon Rodriguez MD Primary Care Provider [phone] Reason for Visit * Reason Onset Date Comments Med Refill 03/31/2024 Rosuvastatin Gurwinder cium 10 MG Encounter Details Date Type Department Care Team (Late st Contact Info) Description 03/31/2024 Telephone [facility] [address] [facility] [address] [place] [phone] Lizeth Castrejon MD [address] [place] [address] Med Refill (Rosuvastatin Calcium 10 MG) Social History Tobacco Use Types Packs/Day Years Used Date Smoking Tobacco: Every Day Cigarettes Alcohol Use Standard Drinks/Week Comments Not Asked 0 (1 standard drink = 0.6 oz pur e alcohol) Sex and Gender Information Value Date Recorded Sex Assigned at Not on file Legal Sex Male 9:21 AM EST Gender Identity Not on file Sexual Orientation Not on file documented as of this encounter Ordered Prescriptions Prescription Sig Dispense Quantity Refills Last Filled Start Date End Date rosuvastatin (CRESTOR) 10 mg tablet Take 1 tablet (10 mg total) by mouth at bedtime. 90 tablet 1 04/03/2024 documented in this encounter Progress Notes * Celina Yin MA - 04/03/2024 2:14 PM EST Spoke with patient. Lipids Future appt 1.[address] Castrejon Statin renewed. * Kinjal Odell - 04/03/2024 1:59 PM EST The patients sister called back requesting this medication be refilled as soon as possible today. He is now out of medication. Pharmacy and script information reconfirmed. * Corrie Lainez - 03/31/2024 4:22 PM EST Pt`s sister , Yeni called She is not on the HIPAA Requesting a refill on Rosuvastatin Calcium 10 MG , 1 Tablet by mouth at bedtime sent to [facility] their phone number is [phone] .He is out of this . Rui`s phone number is [phone] bibianamarco a documented in this encounter Plan of Treatment Not on file documented as of this encounter Visit Diagnoses Not on filedocumented in this encounter Discontinued Medications Medication Sig Discontinue Reason Start Date End Da te rosuvastatin (CRESTOR) 10 mg tablet Take 1 tablet (10 mg total) by mouth. at bedtime Reorder 12/29/2023 04/03/2024 documented as of this encounter Historical Medications * This list may reflect changes made after this encounter. rosuvastatin (CRESTOR) 10 mg tablet Take 1 tablet (10 mg total) by mouth. at bedtime 12/29/2023 04/03/2024 added in this encounter Care Teams Production Tool Engineer Relationship Specialty Start Date End Date Antwon Rodriguez MD PCP - General Internal Medicine 09/19/21 04/04/24 documented as of this encounter
--- OUTSIDE RECORDS SUMMARY | 2024-05-03 14:20 | XMS_ITS | Clinical Summary ---
Author Organization [facility] Address [address] [place] [address] Phone Care Team Providers Care Library Technician Name Role Phone Antwon Rodriguez MD Primary Care Provider [phone] Allergies No known active allergies Medications rosuvastatin (CRESTOR) 10 mg tablet Take 1 tablet (10 mg total) by mouth at bedtime. 90 tablet 1 5 Active acetaminophen (TYLENOL 8 HOUR) 650 mg 8 hr tablet Take 1 Tablet by mouth every 8 hours as needed. Active amLODIPine (NORVASC) 5 mg tablet Take 2 Tablets by mouth daily. 4 Active furosemide (LASIX) 40 mg tablet Take 1 Tablet by mouth daily. 4 Active warfarin (COUMADIN) 4 mg tablet Take 1 tablet (4 mg total) by mouth 1 (one) time each day with dinner. 90 tablet 3 5 Active gabapentin (NEURONTIN) 300 mg capsule Take 1 capsule (300 mg total) by mouth 3 (three) times a day. 90 capsule 2 5 Active gabapentin (NEURONTIN) 300 mg capsule Take 1 capsule (300 mg total) by mouth 3 (three) times a day. 90 capsule 2 4 05/01/19 25 Discontinu ed(Reorder ) rosuvastatin (Ezallor Sprinkle) 10 mg capsule, sprinkle Take 1 Tablet by mouth at bedtime. 3 04/07/19 25 Discontinu ed(Duplica te order) warfarin (COUMADIN) 4 mg tablet Take 1-2 Tablets by mouth daily. Or as directed by the coumadin clinic May cause heavy bleeding. Take at same time every day. Do not change dietary habits. 4 05/01/19 25 Discontinu ed(Reorder ) Active Problems Problem Noted Date Diagnosed Date Mixed hyperlipidemia 02/01/2023 Overview (04/04/2024): Last Assessment & Plan: Given risk factors, [...] get him on lipid-lowering therapy Hypertension 07/20/2022 Overview (04/04/2024): Last Assessment & Plan: Suboptimally controlled but because he does not regularly take 10 mg of amlodipine-reiterated that he should be taking it as 10 mg daily, recommended daily weights though patient does not have access to a scale, recommended 1500 mg or less of sodium per day and advised him to read labels as many processed foods have sodium in them Assessment & Plan (04/27/2024 6:08 PM EST): - Blood pressure readings have consistently been elevated; today's reading was 150/70, which is an improvement but still not within the normal range. - Monitor blood pressure at home and report any significant changes - Referral to Dr. Michael Kapoor for further evaluation and management Orders: ECG 12 lead (HFpEF) heart failure with preserved ejection fr action 07/17/2022 Overview (04/04/2024): - Hospitalized in June 2021 at [facility] with CHF exacerbation in the setting of [...] today, continue current Lasix 40 mg daily Assessment & Plan (04/27/2024 6:08 PM EST): Patient is centrally euvolemic and currently on furosemide and amlodipine 10 mg daily; leg swelling has improved with elevation. - Continue current medication regimen - Elevate legs to manage swelling which are more likely due to venous insufficiency than heart failure Cellulitis of both lower extremities 07/17/2022 Venous insufficiency of both lower extremities 0 07/17/2022 Overview (04/04/2024): - Had cellulitis left lower extremity of [...] 10 mg for better blood pressure control Assessment & Plan (04/27/2024 6:09 PM EST): - Improvement in leg swelling with elevation; redness in skin attributed to likely stasis dermatitis and not considered dangerous. - Continue elevating legs - Monitor for any changes Encounters Date Type Department Care Team Description 04/07/2024 2:30 PM EST Office Visit [facility] - [address] [place] [address] Lizeth Verdin MD Chronic heart failure with preserved ejection fraction (CMS/HCC) (Primary Dx); Hypertension, unspecified type; Venous insufficiency of both lower extremities 03/31/2024 Telephone [facility] - [address] [place] [address] Lizeth Verdin MD Med Refill (Rosuvastatin Calcium 10 MG) 03/28/2024 Telephone Internal Medicine - [address] [place] [address] Antwon Rodriguez MD Med Refill from Last 3 Months Medical History Medical History Date Comments Type 2 diabetes mellitus (CMS/HCC) DX:Type 2 diabetes mellitus (HCC) Obesity DX:Obesity Diverticulitis DX:Diverticuliti s GERD (gastroesophageal reflux disease) DX:GERD (gastroesophageal reflux disease) Peripheral edema DX:Peripheral e bethany Cellulitis of both lower extremities DX:Cellulitis of both lower extremities Family History Medical History Relation Name Comments No Known Problems Father No Known Problems Mother Relation Name Status Comments Father Mother Social History Tobacco Use Types Packs/Day Years [...] on file Sexual Orientation Not on file Obstetrics History Last Filed Vital Signs Vital Sign Reading [...] Mass Index 45.93 04/07/2024 2:40 PM EST Plan of Treatment Health Maintenance Due Date Last Done Comments Diabetes: Annual Foot Exam 1974 Diabetes: Annual Retina Eye Exam 1974 DTaP,Tdap,and Td Vaccines (1 - Tdap) 07/11/1983 Hepatitis B Vaccines (1 of 3 - 19+ 3-dose series) 07/11/1983 Pneumococcal Vaccine: 50+ Years (1 of 2 - PCV) 07/11/1983 Pneumococcal Vaccine: Pediatrics (0 to 5 Years) and At-Risk Patients (6 to 64 Years) (1 of 2 - PCV) 07/11/1983 Zoster Vaccines (1 of 2) 2014 Colorectal Cancer Screening: Colonoscopy 03/01/2022 Depression Screening 03/01/2022 HIV Screening 03/01/2022 Social Influencers of Health Screening 03/01/2022 COVID-19 Vaccine (1 - 2023-2 5 season) 2023 Influenza Vaccine (#1) 2023 Diabetes: Annual Urine Albumin-Creatinine Ratio (uACR) 04/07/2024 Diabetes: Blood Sugar Contro l Test (HGBA1C) 04/07/2024 Diabetes: Annual GFR (Glomerular Filtration Rate) 10/19/2024 10/20/2023, 10/20/2023 Hypertension/CHF/CAD Annual BMP Blood Test 10/19/2024 10/20/2023, 10/20/2023 Cholesterol Screening (Lipid Panel) 10/19/2028 10/20/2023, 10/20/2023 RSV Immunization Patients 60 + Years Old (1 - 1-dose 75+ series) 07/11/2039 Hepatitis C Screening Completed 05/30/2001 HIB Vaccines Aged Out No longer eligi ble based on patient's age to complete this topic HPV Vaccines Aged Out No longer eligi ble based on patient's age to complete this topic Hepatitis A Vaccines Aged Out No long er eligible based on patient's age to complete this topic IPV Vaccines Aged Out No longer eligi ble based on patient's age to complete this topic MMR Vaccines Aged Out No longer eligi ble based on patient's age to complete this topic Meningococcal ACWY Vaccine Aged Out N o longer eligible based on patient's age to complete this topic Meningococcal B Vacine Aged Out No lo nger eligible based on patient's age to complete this topic RSV Immunization Patients Under 20 months Aged Out No longer eligible b ased on patient's age to complete this topic Varicella Vaccines Aged Out No longer eligible based on patient's age to complete this topic Procedures Procedure Name Priority Date/Time Associated Diagnosis Comments ECG 12-LEAD Routine 04/07/2024 2:47 PM EST Hypertension, unspecified type ANNUAL BMP BLOOD TEST Routine 10/20/2023 LIPID PANEL Routine 10/20/2023 HEPATITIS C SCREENING Routine 05/30/2001 from Last 3 Months or Most Recently Relevant to Health Maintenance Results * ECG 12 lead (04/07/2024 2:47 PM EST) [facility] Ventricular Rate ECG 51 BPM GEMUSE Atrial Rate 51 BPM GEMUSE P-R Interval 180 ms GEMUSE QRS Duration 96 ms GEMUSE Q-T Interval 460 ms GEMUSE QTc 423 ms GEMUSE P Wave [place] 38 degrees GEMUSE R [place] 37 degrees GEMUSE T [place] 59 degrees GEMUSE ECG Interpretation Sinus bradycardia Otherwise normal ECG When compared with ECG of 03-JUL-2021 13:40, No significant change was found Confirmed by LIZETH VERDIN ([id number]) on 04/07/2024 6:00:33 PM GEMUSE 04/07/2024 2:47 PM EST 04/07/2024 6:00 PM EST Lizeth Verdin MD ECG ORDERABLES Final Result GEMUSE * Annual BMP Blood Test (10/20/2023) [facility] Annual BMP Blood Test abstracted Result [facility] Historical Provider HEALTH MAINTENANCE Final Result * (ABNORMAL) Lipid panel (10/20/2023) [facility] LDL/HDL Ratio 4 0 - 4 Triglycerides 245(A) 0 - 150 mg/dL Cholesterol 137 0 - 200 mg/dL HDL 35(A) >=40 mg/dL LDL Cholesterol 53 0 - 100 mg/dL Blood Venous blood specimen / Unknown Historical Provider LAB BLOOD ORDERABLES Ericka l Result * Hepatitis C Screening (05/30/2001) [facility] Hepatitis C Screening abstracted Historical Provider HEALTH MAINTENANCE Final Result from Last 3 Months or Most Recently Relevant to Health Maintenance Insurance [facility] Advance Directives Documents on File Type Date Recorded Patient Sediment Remediation Consultant Expl anation Health Care Decision (hx) 06/26/2021 AD CARRILLO DIRECTIVE Health Care Decision (hx) 06/26/2021 AD CARRILLO DIRECTIVE Health Care Decision (hx) 06/26/2021 AD CARRILLO DIRECTIVE Care Teams Library Technician Relationship Specialty Start Date End Date Antwon Rodriguez MD [address] [facility] [address] [place] [address] PCP - General Internal Medicine 04/05/24
--- OUTSIDE RECORDS SUMMARY | 2024-05-03 14:20 | XMS_ITS | Encounter Summary ---
Author Organization [facility] Address [address] [place] [address] Care Team Providers Care Hand Tube Bender Name Role Phone Antwon Rodriguez MD Primary Care Provider [phone] Reason for Visit * Reason Onset Date Comments Med Refill 03/28/2024 Encounter Details Date Type Department Care Team (Late st Contact Info) Description 03/28/2024 Telephone Internal Medicine - [place] 175 [facility] [address] [place] [phone] Antwon Rodriguez MD 175 [facility] 200 [place] [address] Med Refill Social History Tobacco Use Types Packs/Day Years [...] on file documented as of this encounter Plan of Treatment Not on file documented as of this encounter Visit Diagnoses Not on filedocumented in this encounter Care Teams Hand Tube Bender Relationship Specialty Start Date End Date Antwon Rodriguez MD 175 [facility] [address] [place] [address] PCP - General Internal Medicine 04/05/24 documented as of this encounter
--- OUTSIDE RECORDS SUMMARY | 2024-05-03 14:20 | XMS_ITS | Encounter Summary ---
Author Organization [employer] Address [address] [place] [address] [address] [place] [address] Care Team Providers Care Legal Secretary Name Role Phone Joleen Simon MD Primary Care Provider [phone] Reason for Visit * Reason Comments Med Refill Encounter Details Date Type Department Care Team ([facility] st Contact Info) Description 12/08/2022 Refill [facility] [address] [place] [address] Joleen Simon MD [address] [place] [address] Social History Tobacco Use Types Packs/Day Years [...] on filedocumented in this encounter Care Teams Legal Secretary Relationship Specialty Start Date End Date Joleen Simon MD [address] [place] [address] PCP - General Family Medicine 11/23/12 10/21/23 documented as of this encounter
--- OUTSIDE RECORDS SUMMARY | 2024-05-03 14:20 | XMS_ITS | Clinical Summary ---
Author Organization [employer] Address [address] [place] [address] [address] [place] [address] Care Team Providers Care Building Drafter Name Role Phone Unavailable Primary Care Provider Unavailabl e Social History Tobacco Use Types Packs/Day Years Used Date Smoking Tobacco: Never Assessed Sex and Gender Information Value Date Recorded Sex Assigned at Male 01/19/2022 10:18 AM EDT Legal Sex Male 10:18 AM EDT Gender Identity Male 01/19/2022 10:18 AM EDT Sexual Orientation Straight 01/19/2022 10 :18 AM EDT Last Filed Vital Signs Vital Sign Reading Time Taken Comments Blood Pressure 140/80 10/29/2020 12:08 AM EDT Pulse 60 09/30/2020 12:07 AM EDT Temperature - - Respiratory Rate - - Oxygen Saturation - - Inhaled Oxygen Concentration - - Weight 145 kg (319 lb) 10/29/2020 12:08 AM EDT Height 175.3 cm (5' 9 ) 09/30/2020 12:07 AM EDT Body Mass Index 47.11 09/30/2020 12:07 AM EDT Plan of Treatment Health Maintenance Due Date Last Done Comments CT Colonography 1964 Colonoscopy 1964 Colorectal Cancer Screening 1964 Depression Screening 1964 FIT DNA/Cologuard 1964 FIT 1964 FOBT 1964 Lipid Panel 1964 Sigmoidoscopy 1964 Alcohol/Substance Use Screening 1976 Tobacco Screening 1976 Hepatitis B Vaccines (1 of 3 - 19+ 3-dose series) 07/11/1983 Pneumococcal Vaccine: 50+ Ye ars (1 of 1 - PCV) 2014 Zoster Vaccines (1 of 2) 2014 COVID-19 Vaccine (2023-2 5 season) 2023 Influenza Vaccine (#1) 2023 DTaP/Tdap/Td Vaccines (2 - T d or Tdap) 07/16/2027 07/15/2017 RSV Patients and Pa tients Aged 60 years or older (1 - 1-dose 75+ series) 07/11/2039 HIB Vaccines Aged Out No longer eligi [...] patient's age to complete this topic Meningococcal Vaccine Aged Out No kieran stephen eligible based on patient's age to complete this topic Pneumococcal Vaccine: Pediat rics (0 to 5 Years) and At-Risk Patients (6 to 49) Years) Aged Out No longer elig ible based on patient's age to complete this topic RSV under 20 months Aged Out No longe r eligible based on patient's age to complete this topic Rotavirus Vaccines Aged Out No longer eligible based on patient's age to complete this topic
== END 2024-05-03 13:24 | disposition home or self-care (01) ==
LOC: HO.ACS 13:00
PROVIDERS: PCP Internal Medicine; Visit Provider Internal Medicine
DX: Z79.01 Long term (current) use of anticoagulants (principal)

== ENCOUNTER → 2024-05-03 13:00 | Outpatient (BNVA) | payer OTHER, SELFPAY | PROVIDERS: PCP Internal Medicine; Visit Provider Internal Medicine | DX: Z86.718 Personal history of other venous thrombosis and embolism (principal); Z79.01 Long term (current) use of anticoagulants; Z51.81 Encounter for therapeutic drug level monitoring | CPT/HCPCS: 85610; 99211 ==

== ENCOUNTER 2024-05-17 13:01 | Outpatient (AMB) | payer OTHER, SELFPAY ==
[2024-05-17 13:08] LABS: Prothrombin Time Whole Bld POC 33.9 sec (11.1-13.5); ~PT, ~INR - Anti Coag Clinic 2.8 (0.9-1.1)
--- NOTE | 2024-05-17 13:13 | MHC.OFFVISCO ---
Intake Intake Visit Reasons: Anticoagulation Allergies No Known Allergies [No Known Allergies*] Allergy (Verified 05/17/24 13:02) Medication List - Last Reconciled 05/17/24 by Asia Soto RN acetaminophen ER (Arthritis Pain Relief (acetaminophen) ER) 650 mg PO Q8H amlodipine 10 mg PO DAILY cetirizine (Zyrtec) PO fexofenadine (Makayla Allergy) PRN furosemide 40 mg PO DAILY gabapentin 300 mg PO TID loratadine (Claritin) PO rosuvastatin 10 mg PO BEDTIME triamcinolone acetonide 0.1% topical PRN warfarin 4 mg See Protocol PO DAILY Nursing Note NO CP,SOB,DIET/MED CHANGES,FALLS OR SX OF BLEEDING. CONTINUE PRESENT DOSE AND FOLLOW-UP IN 4 WEEKS GOOD UNDERSTANDING OF DOSING INSTR. Anti-Coag Initial Assessment Social Hx Smoking packs per day: 0.5 Coding Level of Care Code Est Patient Level 1 Diagnoses Current use of anticoagulant therapy Z79.01 Assessment & Plan Assessment & Plan (1) Current use of anticoagulant therapy: Code(s): Z79.01 - jail (current) use of anticoagulants Category: Medical
--- OUTSIDE RECORDS SUMMARY | 2024-05-17 16:00 | XMS_ITS | Clinical Summary ---
Author Organization [facility] Address [address] [place] [address] Phone Care Team Providers Care Chair Upholsterer Name Role Phone Joleen Simon MD Primary Care Provider [phone] Allergies No known active allergies Medications warfarin [...] (02/08/2023): - Hospitalized in June 2021 at [facility] with CHF exacerbation in the [...] Exam 07/24/2021 Influenza Vaccine (#1) 2023 Insurance [facility] Care Teams Chair Upholsterer Relationship Specialty Start Date End Date Joleen Simon MD [address] [place] [address] PCP - General Family Medicine 06/30/21
--- OUTSIDE RECORDS SUMMARY | 2024-05-17 16:00 | XMS_ITS | Encounter Summary ---
Author Organization [facility] Address [address] [place] [address] Care Team Providers Care Cafeteria Table Attendant Name Role Phone Antwon Rodriguez MD Primary Care Provider Reason for Visit * Reason Onset Date Comments Med Refill 03/28/2024 Encounter Details Date Type Department Care Team (Late st Contact Info) Description 03/28/2024 Telephone Internal Medicine - [place] 175 [facility] 200 [place] [phone] Antwon Rodriguez MD 175 [facility] 200 [place] [address] Med Refill Social History Tobacco Use Types [...] on filedocumented in this encounter Care Teams Cafeteria Table Attendant Relationship Specialty Start Date End Date Antwon Rodriguez MD 175 [facility] 200 [place] [address] PCP - General Internal Medicine 04/05/24 documented as of this encounter
--- OUTSIDE RECORDS SUMMARY | 2024-05-17 16:00 | XMS_ITS | Encounter Summary ---
Author Organization [employer] Address [address] [place] [address] [address] [place] [address] Care Team Providers Care Die Attaching Machine Tender Name Role Phone Joleen Simon MD Primary Care Provider [phone] Encounter Details Date Type Department Care Team (Latest Contact Info) Description 05/30/2019 Abstract [facility] CONVERSIONS Dental, Provider, DDS Social History Tobacco [...] on filedocumented in this encounter Care Teams Die Attaching Machine Tender Relationship Specialty Start Date End Date Joleen Simon MD [address] [place] [address] PCP - General Family Medicine 11/23/12 10/21/23 documented as of this encounter
--- OUTSIDE RECORDS SUMMARY | 2024-05-17 16:00 | XMS_ITS | Clinical Summary ---
Author Organization [employer] Address [address] [place] [address] [address] [place] [address] Care Team Providers Care Mine Promotor Name Role Phone Unavailable Primary Care Provider [...]
--- OUTSIDE RECORDS SUMMARY | 2024-05-17 16:00 | XMS_ITS | Clinical Summary ---
Author Organization [facility] Address [address] [place] [address] Phone Care Team Providers Care Library Sales Consultant Name Role Phone Antwon Rodriguez MD Primary Care Provider [phone] Allergies No known active allergies Medications rosuvastatin [...] 2 4 05/01/19 25 Discontinu ed(Reorder ) warfarin (COUMADIN) 4 mg tablet Take 1-2 [...] (04/04/2024): - Hospitalized in June 2021 at [facility] with CHF exacerbation in the [...] Description 04/07/2024 2:30 PM EST Office Visit [facility] - [facility] [address] [facility] [address] [place] [phone] Lizeth Verdin MD Chronic heart failure with preserved ejection fraction (CMS/HCC) (Primary Dx); Hypertension, unspecified type; Venous insufficiency of both lower extremities 03/31/2024 Telephone [facility] - [facility] [address] [facility] [address] [place] [phone] Lizeth Verdin MD Med Refill (Rosuvastatin Calcium 10 MG) 03/28/2024 Telephone Internal Medicine - [place] 175 [facility] 200 [place] [phone] Antwon Rodriguez MD Med Refill from Last [...] Influencers of Health Screening 03/01/2022 COVID-19 Vaccine (2023-2 5 season) 2023 Influenza [...] ECG 12 lead (04/07/2024 2:47 PM EST) [facility] Ventricular Rate ECG 51 BPM GEMUSE Atrial Rate 51 BPM GEMUSE P-R Interval 180 ms GEMUSE QRS Duration 96 ms GEMUSE Q-T Interval 460 ms GEMUSE QTc 423 ms GEMUSE P Wave [place] 38 degrees GEMUSE R [place] 37 degrees GEMUSE T [place] 59 degrees GEMUSE ECG Interpretation Sinus bradycardia Otherwise normal ECG When compared with ECG of 03-JUL-2021 13:40, No significant change was found Confirmed by LIZETH VERDIN ([id number]) on 04/07/2024 6:00:33 PM GEMUSE 04/07/2024 2:47 PM EST 04/07/2024 6:00 PM EST Result [facility] Lizeth Verdin MD ECG ORDERABLES Final Result GEMUSE * Annual BMP Blood Test (10/20/2023) [facility] Annual BMP Blood Test abstracted Result [facility] Provider HEALTH MAINTENANCE Final Result * (ABNORMAL) Lipid panel (10/20/2023) [facility] LDL/HDL Ratio 4 0 - 4 Triglycerides 245(A) 0 - 150 mg/dL Cholesterol 137 0 - 200 mg/dL HDL 35(A) >=40 mg/dL LDL Cholesterol 53 0 - 100 mg/dL Blood Venous blood specimen / Unknown Result [facility] Provider LAB BLOOD ORDERABLES Ericka l Result * Hepatitis C Screening (05/30/2001) [facility] Hepatitis C Screening abstracted Result [facility] Historical Provider HEALTH MAINTENANCE Final Result from Last 3 Months or Most Recently Relevant to Health Maintenance Insurance [facility] Advance Directives Documents on File Type Date Recorded Patient Sap Administrator Expl anation Health Care Decision (hx) 06/26/2021 AD CARRILLO DIRECTIVE Health Care Decision (hx) 06/26/2021 AD CARRILLO DIRECTIVE Health Care Decision (hx) 06/26/2021 AD CARRILLO DIRECTIVE Care Teams Library Sales Consultant Relationship Specialty Start Date End Date Antwon Rodriguez MD [address] [place] [address] PCP - General Internal Medicine 04/05/24
--- OUTSIDE RECORDS SUMMARY | 2024-05-17 16:00 | XMS_ITS | Encounter Summary ---
Author Organization [employer] Address [address] [place] [address] [address] [place] [address] Care Team Providers Care Dx Board Operator Name Role Phone Joleen Simon MD Primary Care Provider [phone] Reason for Visit * Reason Comments Med Refill Encounter Details Date Type Department Care Team ([facility] st Contact Info) Description 12/08/2022 Refill [facility] MED & PEDS [address] [place] [address] Joleen Simon MD [address] [place] [address] Social History Tobacco Use Types Packs/Day Years [...] on filedocumented in this encounter Care Teams Dx Board Operator Relationship Specialty Start Date End Date Joleen Simon MD [address] [place] [address] PCP - General Family Medicine 11/23/12 10/21/23 documented as of this encounter
== END 2024-05-17 13:23 | disposition home or self-care (01) ==
LOC: HO.ACS 13:01
PROVIDERS: PCP Internal Medicine; Visit Provider Internal Medicine
DX: Z79.01 Long term (current) use of anticoagulants (principal)

== ENCOUNTER → 2024-05-17 13:01 | Outpatient (BNVA) | payer OTHER, SELFPAY | PROVIDERS: PCP Internal Medicine; Visit Provider Internal Medicine | DX: Z86.718 Personal history of other venous thrombosis and embolism (principal); Z79.01 Long term (current) use of anticoagulants; Z51.81 Encounter for therapeutic drug level monitoring | CPT/HCPCS: 85610; 99211 ==

== ENCOUNTER 2024-06-14 13:02 | Outpatient (AMB) | payer OTHER, SELFPAY ==
[2024-06-14 13:09] LABS: Prothrombin Time Whole Bld POC 28.2 sec (11.1-13.5); ~PT, ~INR - Anti Coag Clinic 2.4 (0.9-1.1)
--- NOTE | 2024-06-14 13:14 | MHC.OFFVISCO ---
Intake Intake Visit Reasons: Anticoagulation Allergies No Known Allergies [No Known Allergies*] Allergy (Verified 06/14/24 13:03) Medication List - Last Reconciled 06/14/24 by Asia Soto RN acetaminophen ER (Arthritis Pain Relief (acetaminophen) ER) 650 mg PO Q8H amlodipine 10 mg PO DAILY cetirizine (Zyrtec) PO fexofenadine (Makayla Allergy) PRN furosemide 40 mg PO DAILY gabapentin 300 mg PO TID loratadine (Claritin) PO rosuvastatin 10 mg PO BEDTIME triamcinolone acetonide 0.1% topical PRN warfarin 4 mg See Protocol PO DAILY Nursing Note NO CP,SOB,DIET/MED CHANGES,FALLS OR SX OF BLEEDING. CONTINUE PRESENT DOSING AND FOLLOW-UP IN WEEKS. GOOD UNDERSTANDING OF DOSING INSTR. Anti-Coag Initial Assessment Social Hx Smoking packs per day: 0.5 Coding Level of Care Code Est Patient Level 1 Diagnoses Current use of anticoagulant therapy Z79.01 Assessment & Plan Assessment & Plan (1) Current use of anticoagulant therapy: Code(s): Z79.01 - [facility] (current) use of anticoagulants Category: Medical
--- OUTSIDE RECORDS SUMMARY | 2024-06-14 15:28 | XMS_ITS | Clinical Summary ---
Author Organization [employer] Address [address] [place] [address] [address] [place] [address] Care Team Providers Care Exhaust And Muffler Repairer Name Role Phone Unavailable Primary Care Provider [...]
--- OUTSIDE RECORDS SUMMARY | 2024-06-14 15:28 | XMS_ITS | Encounter Summary ---
Author Organization [employer] Address [address] [place] [address] 7[address] [place] [address] Care Team Providers Care Incoming Freight Clerk Name Role Phone Joleen Simon MD Primary Care Provider [phone] Encounter Details Date Type Department Care Team (Latest Contact Info) Description 05/30/2019 Abstract [facility] CONVERSIONS Dental, Provider, DDS Social History [...] on filedocumented in this encounter Care Teams Incoming Freight Clerk Relationship Specialty Start Date End Date Joleen Simon MD [address] [place] [address] PCP - General Family Medicine 11/23/12 10/21/23 documented as of this encounter
--- OUTSIDE RECORDS SUMMARY | 2024-06-14 15:29 | XMS_ITS | Clinical Summary ---
Author Organization [facility] [employer] [facility] Address [address] [place] [address] Phone Care Team Providers Care Talent Acquisition Director Name Role Phone Antwon Rodriguez MD Primary Care Provider [phone] Allergies No known active allergies Medications rosuvastatin (CRESTOR) 10 mg tablet Take 1 tablet (10 mg total) by mouth at bedtime. 90 tablet 1 5 Active acetaminophen (TYLENOL 8 HOUR) 650 mg 8 hr tablet Take 1 Tablet by mouth every 8 hours as needed. Active amLODIPine (NORVASC) 5 mg tablet Take 2 Tablets by mouth daily. 4 Active warfarin (COUMADIN) 4 mg tablet Take 1 tablet (4 mg total) by mouth 1 (one) time each day with dinner. 90 tablet 3 5 Active gabapentin (NEURONTIN) 300 mg capsule Take 1 capsule (300 mg total) by mouth 3 (three) times a day. 90 capsule 2 5 Active furosemide (LASIX) 40 mg tablet Take 1 tablet (40 mg total) by mouth 1 (one) time each day. 60 tablet 1 5 Active furosemide (LASIX) 40 mg tablet Take 1 Tablet by mouth daily. 4 05/30/19 25 Discontinu ed(Reorder ) Active Problems Problem [...] (04/04/2024): - Hospitalized in June 2021 at [facility] with CHF exacerbation in the setting [...] 04/07/2024 2:30 PM EST Office Visit [facility] [address] [facility] [address] [place] [address] Lizeth Verdin MD Chronic heart failure with preserved ejection fraction (CMS/HCC) (Primary Dx); Hypertension, unspecified type; Venous insufficiency of both lower extremities 03/31/2024 Telephone [facility] [address] [facility] [address] [place] [id number] Lizeth Verdin MD Med Refill (Rosuvastatin Calcium 10 MG) 03/28/2024 Telephone Internal Medicine - [place] 175 [facility] [address] [place] [address] Antwon Rodriguez MD Med Refill from Last 3 Months Medical History Medical History Date Comments Type 2 diabetes mellitus DX:Type 2 diabetes mellitus (HCC) Obesity DX:Obesity [...] Influencers of Health Screening 03/01/2022 COVID-19 Vaccine ( - 2023-2 5 season) 2023 Influenza Vaccine [...] GEMUSE QTc 423 ms GEMUSE P Wave Crowley 38 degrees GEMUSE R Crowley 37 degrees GEMUSE T Crowley 59 degrees GEMUSE ECG Interpretation Sinus bradycardia Otherwise normal ECG When compared with ECG of 03-JUL-2021 13:40, No significant change was found Confirmed by LIZETH VERDIN ([id number]) on 04/07/2024 6:00:33 PM GEMUSE 04/07/2024 2:47 PM EST 04/07/2024 6:00 PM EST Result [facility] Lizeth Verdin MD ECG ORDERABLES Final Result GEMUSE * Annual BMP Blood Test (10/20/2023) Pathologist [facility] Annual BMP Blood Test abstracted Result [facility] Historical Provider HEALTH MAINTENANCE Final Result * (ABNORMAL) Lipid panel (10/20/2023) [facility] LDL/HDL Ratio 4 0 - 4 Triglycerides 245(A) 0 - 150 mg/dL Cholesterol 137 0 - 200 mg/dL HDL 35(A) >=40 mg/dL LDL Cholesterol 53 0 - 100 mg/dL Blood Venous blood specimen / Unknown Result [facility] Historical Provider LAB BLOOD ORDERABLES Ericka l Result * Hepatitis C Screening (05/30/2001) Pathologist [facility] Hepatitis C Screening abstracted Result [facility] Historical Provider HEALTH MAINTENANCE Final Result from Last 3 Months or Most Recently Relevant to Health Maintenance Insurance [facility] [employer] Advance Directives Documents on File Type Date Recorded Patient Faucets Assembler Expl anation Health Care Decision (hx) 06/26/2021 AD CARRILLO DIRECTIVE Health Care Decision (hx) 06/26/2021 AD CARRILLO DIRECTIVE Health Care Decision (hx) 06/26/2021 AD CARRILLO DIRECTIVE Care Teams Talent Acquisition Director Relationship Specialty Start Date End Date Antwon Rodriguez MD [address] [place] [address] PCP - General Internal Medicine 04/05/24
--- OUTSIDE RECORDS SUMMARY | 2024-06-14 15:29 | XMS_ITS | Clinical Summary ---
Author Organization [facility] Address [address] [place] [address] Phone Care Team Providers Care Compliance Representative Name Role Phone Joleen Simon MD Primary Care Provider [phone] Allergies No known active allergies Medications warfarin [...] (02/08/2023): - Hospitalized in June 2021 at [facility] with CHF exacerbation in the setting of [...] Exam 07/24/2021 Influenza Vaccine (#1) 2023 Insurance [facility] Care Teams Compliance Representative Relationship Specialty Start Date End Date Joleen Simon MD [address] [place] [address] PCP - General Family Medicine 06/30/21
--- OUTSIDE RECORDS SUMMARY | 2024-06-14 15:29 | XMS_ITS | Encounter Summary ---
Author Organization [employer] Address [address] [place] [address] [address] [place] [address] Care Team Providers Care Cushion Installer Name Role Phone Joleen Simon MD Primary Care Provider [phone] Reason for Visit * Reason Comments Med Refill Encounter Details Date Type Department Care Team ([facility] st Contact Info) Description 12/08/2022 Refill [facility] MED & PEDS [address] [place] [address] Joleen Simon MD [address] [place] [address] Social History Tobacco Use Types Packs/Day Years [...] on filedocumented in this encounter Care Teams Cushion Installer Relationship Specialty Start Date End Date Joleen Simon MD [address] [place] [address] PCP - General Family Medicine 11/23/12 10/21/23 documented as of this encounter
== END 2024-06-14 13:20 | disposition home or self-care (01) ==
LOC: HO.ACS 13:02
PROVIDERS: PCP Internal Medicine; Visit Provider Internal Medicine Medical Oncology
DX: Z79.01 Long term (current) use of anticoagulants (principal)

== ENCOUNTER → 2024-06-14 13:02 | Outpatient (BNVA) | payer OTHER, SELFPAY | PROVIDERS: PCP Internal Medicine; Visit Provider Internal Medicine Medical Oncology | DX: Z86.718 Personal history of other venous thrombosis and embolism (principal); Z79.01 Long term (current) use of anticoagulants; Z51.81 Encounter for therapeutic drug level monitoring | CPT/HCPCS: 85610; 99211 ==

== ENCOUNTER 2024-07-12 13:02 | Outpatient (AMB) | payer OTHER, SELFPAY ==
[2024-07-12 13:14] LABS: Prothrombin Time Whole Bld POC 25.8 sec (11.1-13.5); ~PT, ~INR - Anti Coag Clinic 2.2 (0.9-1.1)
--- NOTE | 2024-07-12 13:14 | MHC.OFFVISCO ---
Intake Intake Visit Reasons: Anticoagulation Allergies Seasonal Allergies Allergy (Severe, Verified 07/12/24 13:09) Runny Nose Medication List - Last Reconciled 07/12/24 by Nrey Holguin RN acetaminophen ER (Arthritis Pain Relief (acetaminophen) ER) 650 mg PO Q8H amlodipine 10 mg PO DAILY cetirizine (Zyrtec) PO fexofenadine (Makayla Allergy) PRN furosemide 40 mg PO DAILY gabapentin 300 mg PO TID loratadine (Claritin) PO rosuvastatin 10 mg PO BEDTIME triamcinolone acetonide 0.1% topical PRN warfarin 4 mg See Protocol PO DAILY Nursing Note INR: 2.2- in therapeutic range of 2-3 Medications and supplements reviewed- no changes No changes in health, diet, medications, or supplements, Denies any signs and symptoms of bleeding or bruising or clotting. Bleeding, bruising, clotting discussed Nutritional guidance given Dose: 4mg x 6, 6mg x 1 F/U INR: 4 weeks Patient verbalizes understanding of instructions given pt amb with bilat crutches Anti-Coag Initial Assessment Social Hx Smoking packs per day: 0.5 Coding Level of Care Code Est Patient Level 1 Diagnoses Current use of anticoagulant therapy Z79.01 Assessment & Plan Assessment & Plan (1) Current use of anticoagulant therapy: Code(s): Z79.01 - penitentiary (current) use of anticoagulants Category: Medical
--- OUTSIDE RECORDS SUMMARY | 2024-07-12 15:24 | XMS_ITS | Encounter Summary ---
Author Organization [facility] [employer] Address [address] [place] [address] 7t [place] [address] Care Team Providers Care Compliance Vice President Name Role Phone Joleen Simon MD Primary Care Provider [phone] Reason for Visit * Reason Comments Med Refill Encounter Details Date Type Department Care Team ([facility] st Contact Info) Description 12/08/2022 Refill [facility] CHC MED & PEDS [address] [place] [address] Joleen Simon MD [address] [place] [address] Social History Tobacco Use Types Packs/Day Years [...] on filedocumented in this encounter Care Teams Compliance Vice President Relationship Specialty Start Date End Date Joleen Simon MD [address] [place] [address] PCP - General Family Medicine 11/23/12 10/21/23 documented as of this encounter
--- OUTSIDE RECORDS SUMMARY | 2024-07-12 15:24 | XMS_ITS | Clinical Summary ---
Author Organization [facility] Address [address] [place] [address] Phone Care Team Providers Care Powder Coater Name Role Phone Joleen Simon MD Primary Care Provider [phone] Allergies No known active allergies Medications warfarin [...] (02/08/2023): - Hospitalized in June 2021 at [facility] with CHF exacerbation in the [...] Due Date Last Done Comments Pneumococcal Vaccine: 50+ Ye ars (1 of 2 - PCV) 07/11/1983 Colorectal Cancer Screening: Annual FOBT 2013 Colorectal Cancer Screening: Colonoscopy 2013 Colorectal Cancer Screening: Sigmoidoscopy 2013 Diabetes: Hemoglobin A1C 07/24/2021 Diabetes: Ophthalmology Exam 07/24/2021 Diabetes: Pedal Pulse Checked 07/24/2021 Diabetes: Sensory Foot Exam 07/24/2021 Diabetes: Visual Foot Exam 07/24/2021 Influenza Vaccine (Season Ended) 2024 Hepatitis B Vaccine Aged Out No longe r eligible based on patient's age to complete this topic Insurance [employer] Care Teams Powder Coater Relationship Specialty Start Date End Date Joleen Simon MD [address] [place] [address] PCP - General Family Medicine 06/30/21
--- OUTSIDE RECORDS SUMMARY | 2024-07-12 15:24 | XMS_ITS | Clinical Summary ---
Author Organization [employer] Address [address] [place] [address] 7t [place] [address] Care Team Providers Care Exercise Equipment Specialist Name Role Phone Unavailable Primary Care Provider [...]
--- OUTSIDE RECORDS SUMMARY | 2024-07-12 15:24 | XMS_ITS | Encounter Summary ---
Author Organization [employer] Address [address] [place] [address] 7[address] [place] [address] Care Team Providers Care Cooking Teacher Name Role Phone Joleen Simon MD Primary Care Provider [phone] Encounter Details Date Type Department Care Team (Latest Contact Info) Description 05/30/2019 Abstract [facility] CONVERSIONS Dental, Provider, DDS Social History Tobacco [...] on filedocumented in this encounter Care Teams Cooking Teacher Relationship Specialty Start Date End Date Joleen Simon MD [address] [place] [address] PCP - General Family Medicine 11/23/12 10/21/23 documented as of this encounter
--- OUTSIDE RECORDS SUMMARY | 2024-07-12 15:24 | XMS_ITS | Clinical Summary ---
Author Organization [facility] Address [address] [address] Phone Care Team Providers Care Academic Intern Name Role Phone Antwon Rodriguez MD Primary Care Provider [phone] Allergies No known active allergies Medications rosuvastatin (CRESTOR) 10 mg tablet Take 1 tablet (10 mg total) by mouth at bedtime. 90 tablet 1 04/03/2024 Active acetaminophen (TYLENOL 8 HOUR) 650 mg 8 hr tablet Take 1 Tablet by mouth every 8 hours as needed. Active amLODIPine (NORVASC) 5 mg tablet Take 2 Tablets by mouth daily. 01/13/2024 Active warfarin (COUMADIN) 4 mg tablet Take 1 tablet (4 mg total) by mouth 1 (one) time each day with dinner. 90 tablet 3 05/02/2024 Active gabapentin (NEURONTIN) 300 mg capsule Take 1 capsule (300 mg total) by mouth 3 (three) times a day. 90 capsule 2 05/02/2024 Active furosemide (LASIX) 40 mg tablet Take 1 tablet (40 mg total) by mouth 1 (one) time each day. 60 tablet 1 05/29/2024 Active Active Problems Problem Noted Date Diagnosed [...] ECG 12 lead (HFpEF) heart failure with p reserved ejection fraction (CMS/HCC V24, CMS/HCC V28) 07/17/2022 Overview (04/04/2024): - Hospitalized in June 2021 at [facility] with CHF exacerbation in the setting of [...] elevating legs - Monitor for any changes Medical History Medical History Date Comments Type 2 diabetes mellitus (CM S/HCC V24, CMS/HCC V28) DX:Type 2 diabetes mellitus (HCC) Obesity DX:Obesity [...] DTaP,Tdap,and Td Vaccines (1 - Tdap) 07/11/1983 Pneumococcal Vaccine: 50+ Years (1 of 2 - PCV) 07/11/1983 Pneumococcal Vaccine: Pediatrics (0 to 5 Years) and At-Risk Patients (6 to 64 Years) (1 of 2 - PCV) 07/11/1983 Zoster Vaccines (1 of 2) 2014 Colorectal Cancer Screening: Colonoscopy 03/01/2022 Depression Screening 03/01/2022 HIV Screening 03/01/2022 Social Influencers of Health Screening 03/01/2022 COVID-19 Vaccine ( - 2023-2 5 season) 2023 Diabetes: Annual Urine Albumin-Creatinine Ratio (uACR) 04/07/2024 Diabetes: Blood Sugar Contro l Test (HGBA1C) 04/07/2024 RSV Immunization Adult Patients (1 - Risk 60-74 years 1-dose series) 2024 Diabetes: Annual GFR (Glomerular Filtration Rate) 10/19/2024 10/20/2023, 10/20/2023 Hypertension/CHF/CAD Annual BMP Blood Test 10/19/2024 10/20/2023, 10/20/2023 Influenza Vaccine (Season Ended) 2024 Cholesterol Screening (Lipid Panel) 10/19/2028 10/20/2023, 10/20/2023 Hepatitis C Screening Completed 05/30/2001 HIB Vaccines Aged Out No longer eligi ble based on patient's age to complete this topic HPV Vaccines Aged Out No longer eligi ble based on patient's age to complete this topic Hepatitis A Vaccines Aged Out No long er eligible based on patient's age to complete this topic Hepatitis B Vaccines Aged Out No long er eligible [...] age to complete this topic Meningococcal B Vaccine Aged Out No l onger eligible based on patient's age to complete this topic RSV Immunization Patients Under 20 months Aged Out No longer eligible b ased on patient's age to complete this topic Varicella Vaccines Aged Out No longer eligible based on patient's age to complete this topic Procedures Procedure Name Priority Date/Time Associated Diagnosis Comments ANNUAL BMP BLOOD TEST Routine 10/20/2023 LIPID PANEL Routine 10/20/2023 HEPATITIS C SCREENING Routine 05/30/2001 from Last 3 Months or Most Recently Relevant to Health Maintenance Results * Annual BMP Blood Test (10/20/2023) Pathologist [facility] Annual BMP Blood Test abstracted [facility] Provider HEALTH MAINTENANCE Final Result * (ABNORMAL) Lipid panel (10/20/2023) [facility] LDL/HDL Ratio 4 0 - 4 Triglycerides 245(A) 0 - 150 mg/dL Cholesterol 137 0 - 200 mg/dL HDL 35(A) >=40 mg/dL LDL Cholesterol 53 0 - 100 mg/dL Blood Venous blood specimen / Unknown [facility] Provider LAB BLOOD ORDERABLES Ericka l Result * Hepatitis C Screening (05/30/2001) Pathologist [facility] Hepatitis C Screening abstracted [facility] Provider HEALTH MAINTENANCE Final Result from Last 3 Months or Most Recently Relevant to Health Maintenance Insurance [facility] [employer] Advance Directives Documents on File Type Date Recorded Patient Pharmaceutical Laboratory Technician Expl anation Health Care Decision (hx) 06/26/2021 AD CARRILLO DIRECTIVE Health Care Decision (hx) 06/26/2021 AD CARRILLO DIRECTIVE Health Care Decision (hx) 06/26/2021 AD CARIRLLO DIRECTIVE Care Teams Academic Intern Relationship Specialty Start Date End Date Antwon Rodriguez MD [address] [address] PCP - General Internal Medicine 04/05/24
== END 2024-07-12 13:20 | disposition home or self-care (01) ==
LOC: HO.ACS 13:02
PROVIDERS: PCP Internal Medicine; Visit Provider Internal Medicine Medical Oncology
DX: Z79.01 Long term (current) use of anticoagulants (principal)

== ENCOUNTER → 2024-07-12 13:02 | Outpatient (BNVA) | payer OTHER, SELFPAY | PROVIDERS: PCP Internal Medicine; Visit Provider Internal Medicine Medical Oncology | DX: Z86.718 Personal history of other venous thrombosis and embolism (principal); Z79.01 Long term (current) use of anticoagulants; Z51.81 Encounter for therapeutic drug level monitoring | CPT/HCPCS: 85610; 99211 ==

== ENCOUNTER 2024-08-09 12:57 | Outpatient (AMB) | payer OTHER, SELFPAY ==
[2024-08-09 13:05] LABS: Prothrombin Time Whole Bld POC 40.7 sec (11.1-13.5); ~PT, ~INR - Anti Coag Clinic 3.4 (0.9-1.1)
--- NOTE | 2024-08-09 13:09 | MHC.OFFVISCO ---
Intake Intake Visit Reasons: Anticoagulation Allergies Seasonal Allergies Allergy (Severe, Verified 08/09/24 13:00) Runny Nose Medication List - Last Reconciled 08/09/24 by Asia Soto RN acetaminophen ER (Arthritis Pain Relief (acetaminophen) ER) 650 mg PO Q8H amlodipine 10 mg PO DAILY cetirizine (Zyrtec) PO fexofenadine (Makayla Allergy) PRN furosemide 40 mg PO DAILY gabapentin 300 mg PO TID loratadine (Claritin) PO rosuvastatin 10 mg PO BEDTIME triamcinolone acetonide 0.1% topical PRN warfarin 4 mg See Protocol PO DAILY Nursing Note NO CP,SOB,DIET/MED CHANGES,FALLS OR SX OF BLEEDING. REDUCE DOSE TODAY THEN RESUME USUAL DOSING AND FOLLOW-UP IN 4 WEEKS. GOOD UNDERSTANDING OF DOSING INSTR. Anti-Coag Initial Assessment Social Hx Smoking packs per day: 0.5 Coding Level of Care Code Est Patient Level 1 Diagnoses Current use of anticoagulant therapy Z79.01 Assessment & Plan Assessment & Plan (1) Current use of anticoagulant therapy: Code(s): Z79.01 - regional intermodal truck driver (current) use of anticoagulants Category: Medical
--- OUTSIDE RECORDS SUMMARY | 2024-08-09 13:36 | XMS_ITS | Clinical Summary ---
Author Organization [facility] [employer] [facility] Address [address] [place] [address] Phone Care Team Providers Care Cook Helper Juice Name Role Phone Antwon Rodriguez MD Primary Care Provider [phone] Allergies No known active allergies Medications rosuvastatin [...] with dinner. 90 tablet 3 5 Active furosemide (LASIX) 40 mg tablet Take 1 tablet (40 mg total) by mouth 1 (one) time each day. 60 tablet 1 5 Active gabapentin (NEURONTIN) 300 mg capsule Take 1 capsule (300 mg total) by mouth 3 (three) times a day. 90 capsule 2 5 Active gabapentin (NEURONTIN) 300 mg capsule Take 1 capsule (300 mg total) by mouth 3 (three) times a day. 90 capsule 2 5 07/25/19 25 Discontinu ed(Reorder ) Active Problems Problem [...] (04/04/2024): - Hospitalized in June 2021 at [facility] with CHF exacerbation in the setting [...] Vaccine (1 - 2023-2 5 season) 2023 Diabetes: Annual [...] Results * Annual BMP Blood Test (10/20/2023) [facility] Annual BMP Blood Test abstracted [facility] Provider HEALTH MAINTENANCE Final Result * (ABNORMAL) Lipid panel (10/20/2023) [facility] LDL/HDL Ratio 4 0 - 4 Triglycerides 245(A) 0 - 150 mg/dL Cholesterol 137 0 - 200 mg/dL HDL 35(A) >=40 mg/dL LDL Cholesterol 53 0 - 100 mg/dL Blood Venous blood specimen / Unknown [facility] Provider LAB BLOOD ORDERABLES Ericka l Result * Hepatitis C Screening (05/30/2001) [facility] Hepatitis C Screening abstracted [facility] Provider HEALTH MAINTENANCE Final Result from Last 3 Months or Most Recently Relevant to Health Maintenance Insurance [employer] Advance Directives Documents on File Type Date Recorded Patient Barn Hand Expl anation Health Care Decision (hx) 06/26/2021 AD CARRILLO DIRECTIVE Health Care Decision (hx) 06/26/2021 AD CARRILLO DIRECTIVE Health Care Decision (hx) 06/26/2021 AD CARRILLO DIRECTIVE Care Teams Cook Helper Juice Relationship Specialty Start Date End Date Antwon Rodriguez MD [address] [address] PCP - General Internal Medicine 04/05/24
--- OUTSIDE RECORDS SUMMARY | 2024-08-09 13:36 | XMS_ITS | Encounter Summary ---
Author Organization [email or web address] Address [address] [facility] 7t [place] [address] Care Team Providers Care Winder Hand Name Role Phone Joleen Simon MD Primary Care Provider [phone] Encounter Details Date Type Department Care Team (Latest Contact Info) Description 05/30/2019 Abstract [facility] CONVERSIONS Dental, Provider, DDS Social History [...] on filedocumented in this encounter Care Teams Winder Hand Relationship Specialty Start Date End Date Joleen Simon MD [address] [place] [address] PCP - General Family Medicine 11/23/12 10/21/23 documented as of this encounter
--- OUTSIDE RECORDS SUMMARY | 2024-08-09 13:36 | XMS_ITS | Clinical Summary ---
Author Organization [employer] Address [address] [place] [address] [address] [place] [address] Care Team Providers Care Content Creation Manager Name Role Phone Unavailable Primary Care Provider [...] FOBT 1964 Lipid Panel 1964 Sigmoidoscopy 1964 Disability Screening 1964 Alcohol/Substance Use Screening 1976 Tobacco Screening 1976 Pneumococcal Vaccine: 50+ Ye ars (1 of 1 - PCV) 2014 Zoster Vaccines (1 of 2) 2014 COVID-19 Vaccine ( - 2023-2 5 season) [...]
--- OUTSIDE RECORDS SUMMARY | 2024-08-09 13:36 | XMS_ITS | Encounter Summary ---
Author Organization [employer] Address [address]t [place] [address] Care Team Providers Care Decision Support Analyst Name Role Phone Joleen Simon MD Primary Care Provider [phone] Reason for Visit * Reason Comments Med Refill Encounter Details Date Type Department Care Team (Late st Contact Info) Description 12/08/2022 Refill [facility] MED & PEDS [address] [place] [address] Joleen Simon MD [address] [place] [address] Social History Tobacco Use Types Packs/Day Years [...] on filedocumented in this encounter Care Teams Decision Support Analyst Relationship Specialty Start Date End Date Joleen Simon MD [address] [place] [address] PCP - General Family Medicine 11/23/12 10/21/23 documented as of this encounter
--- OUTSIDE RECORDS SUMMARY | 2024-08-09 13:36 | XMS_ITS | Clinical Summary ---
Author Organization [facility] Address [address] [place] [address] Phone Care Team Providers Care City Director Name Role Phone Joleen Simon MD Primary Care Provider [phone] Allergies No known active allergies Medications warfarin [...] (02/08/2023): - Hospitalized in June 2021 at [facility] with CHF exacerbation in the setting [...] patient's age to complete this topic Insurance [facility] [employer] [facility] [employer] Care Teams City Director Relationship Specialty Start Date End Date Joleen Simon MD [address] [place] [address] PCP - General Family Medicine 06/30/21
== END 2024-08-09 13:12 | disposition home or self-care (01) ==
LOC: HO.ACS 12:57
PROVIDERS: PCP Internal Medicine; Visit Provider Internal Medicine Medical Oncology
DX: Z79.01 Long term (current) use of anticoagulants (principal)

== ENCOUNTER → 2024-08-09 12:57 | Outpatient (BNVA) | payer OTHER, SELFPAY | PROVIDERS: PCP Internal Medicine; Visit Provider Internal Medicine Medical Oncology | DX: Z86.718 Personal history of other venous thrombosis and embolism (principal); Z79.01 Long term (current) use of anticoagulants; Z51.81 Encounter for therapeutic drug level monitoring | CPT/HCPCS: 85610; 99211 ==

== ENCOUNTER 2024-09-06 13:01 | Outpatient (AMB) | payer OTHER, SELFPAY ==
--- NOTE | 2024-09-06 13:08 | MHC.OFFVISCO ---
Intake Intake Visit Reasons: Anticoagulation Allergies Seasonal Allergies Allergy (Severe, Verified 09/06/24 13:02) Runny Nose Medication List - Last Reconciled 09/06/24 by Nery Holguin RN acetaminophen ER (Arthritis Pain Relief (acetaminophen) ER) 650 mg PO Q8H amlodipine 10 mg PO DAILY cetirizine (Zyrtec) PO fexofenadine (Makayla Allergy) PRN furosemide 40 mg PO DAILY gabapentin 300 mg PO TID loratadine (Claritin) PO rosuvastatin 10 mg PO BEDTIME triamcinolone acetonide 0.1% topical PRN warfarin 4 mg See Protocol PO DAILY Nursing Note INR: 2.8- in therapeutic range of 2-3 Medications and supplements reviewed No changes in health, diet, medications, or supplements, Denies any signs and symptoms of bleeding or bruising or clotting. Bleeding, bruising, clotting discussed Nutritional guidance given - decreased appetite Dose: 4mg x 6, 6mg x 1 F/U INR: pt ref earlier appt than 4 weeks Patient verbalizes understanding of instructions given pt states was scheduled for root canal approx 1.5 weeks ago, states he held a 6mg warfarin per dentist but proc was not done he is rescheduled for 10/10/24 dressing to anterior moreno- pt states pressure of box - area became reddened. he is using antibiotic oint and dressing. he states it is healing. enc to call pcp if nec Anti-Coag Initial Assessment Social Hx Smoking packs per day: 0.5 Coding Level of Care Code Est Patient Level 1 Diagnoses Current use of anticoagulant therapy Z79.01 Assessment & Plan Assessment & Plan (1) Current use of anticoagulant therapy: Code(s): Z79.01 - buttermaker helper (current) use of anticoagulants Category: Medical
[2024-09-06 13:10] LABS: Prothrombin Time Whole Bld POC 33.4 sec (11.1-13.5); ~PT, ~INR - Anti Coag Clinic 2.8 (0.9-1.1)
--- OUTSIDE RECORDS SUMMARY | 2024-09-06 14:56 | XMS_ITS | Encounter Summary ---
Author Organization [employer] Address [address] [place] [address] 7[address] [place] [address] Care Team Providers Care Dope Pourer Name Role Phone Joleen Simon MD Primary Care Provider [phone] Encounter Details Date Type Department Care Team (Latest Contact Info) Description 05/30/2019 Abstract [facility] CONVERSIONS Dental, Provider, DDS Social History [...] on filedocumented in this encounter Care Teams Dope Pourer Relationship Specialty Start Date End Date Joleen Simon MD [address] [place] [address] PCP - General Family Medicine 11/23/12 10/21/23 documented as of this encounter
== END 2024-09-06 13:18 | disposition home or self-care (01) ==
LOC: HO.ACS 13:01
PROVIDERS: PCP Internal Medicine; Visit Provider Internal Medicine Medical Oncology
DX: Z79.01 Long term (current) use of anticoagulants (principal)

== ENCOUNTER → 2024-09-06 13:01 | Outpatient (BNVA) | payer OTHER, SELFPAY | PROVIDERS: PCP Internal Medicine; Visit Provider Internal Medicine Medical Oncology | DX: Z86.718 Personal history of other venous thrombosis and embolism (principal); Z79.01 Long term (current) use of anticoagulants; Z51.81 Encounter for therapeutic drug level monitoring | CPT/HCPCS: 85610; 99211 ==

== ENCOUNTER 2024-10-04 13:00 | Outpatient (AMB) | payer OTHER, SELFPAY ==
[2024-10-04 13:13] LABS: Prothrombin Time Whole Bld POC 33.1 sec (11.1-13.5); ~PT, ~INR - Anti Coag Clinic 2.8 (0.9-1.1)
--- NOTE | 2024-10-04 13:13 | MHC.OFFVISCO ---
Intake Intake Visit Reasons: Anticoagulation Allergies Seasonal Allergies Allergy (Severe, Verified 10/04/24 13:07) Runny Nose Medication List - Last Reconciled 10/04/24 by Nery Holguin RN acetaminophen ER (Arthritis Pain Relief (acetaminophen) ER) 650 mg PO Q8H amlodipine 10 mg PO DAILY cetirizine (Zyrtec) PO fexofenadine (Makayla Allergy) PRN furosemide 40 mg PO DAILY gabapentin 300 mg PO TID loratadine (Claritin) PO rosuvastatin 10 mg PO BEDTIME triamcinolone acetonide 0.1% topical PRN warfarin 4 mg See Protocol PO DAILY Nursing Note INR: 2.8- in therapeutic range of 2-3 Medications and supplements reviewed- no changes No changes in health, diet, medications, or supplements, Denies any signs and symptoms of bleeding or bruising or clotting. Bleeding, bruising, clotting discussed Nutritional guidance given Dose: 4mg x 6, 6mg x 1 F/U INR: 4 weeks Patient verbalizes understanding of instructions given Anti-Coag Initial Assessment Social Hx Smoking packs per day: 0.5 Coding Level of Care Code Est Patient Level 1 Diagnoses Current use of anticoagulant therapy Z79.01 Assessment & Plan Assessment & Plan (1) Current use of anticoagulant therapy: Code(s): Z79.01 - correction (current) use of anticoagulants Category: Medical
--- OUTSIDE RECORDS SUMMARY | 2024-10-04 13:51 | XMS_ITS | Clinical Summary ---
Author Organization [facility] Address [address] [place] [address] Phone Care Team Providers Care Client Service Professional Name Role Phone Joleen Simon MD Primary Care Provider [phone] Allergies No known active allergies Medications warfarin [...] Visual Foot Exam 07/24/2021 Influenza Vaccine (#1) 2024 Hepatitis B Vaccine Aged Out No longe r eligible based on patient's age to complete this topic Insurance [facility] Care Teams Client Service Professional Relationship Specialty Start Date End Date Joleen Simon MD [address] [place] [address] PCP - General Family Medicine 06/30/21
--- OUTSIDE RECORDS SUMMARY | 2024-10-04 13:51 | XMS_ITS | Encounter Summary ---
Author Organization [employer] Address [address] [place] [address] 7[address] [place] [address] Care Team Providers Care Senior Linux Systems Administrator Name Role Phone Joleen Simon MD Primary Care Provider [phone] Encounter Details Date Type Department Care Team (Latest Contact Info) Description 05/30/[address] [facility] CONVERSIONS Dental, Provider, DDS Social History [...] on filedocumented in this encounter Care Teams Senior Linux Systems Administrator Relationship Specialty Start Date End Date Joleen Simon MD [address] [place] [address] PCP - General Family Medicine 11/23/12 10/21/23 documented as of this encounter
--- OUTSIDE RECORDS SUMMARY | 2024-10-04 13:51 | XMS_ITS | Clinical Summary ---
Author Organization [facility] Address [address] [place] [address] Phone Care Team Providers Care Financial Planner Name Role Phone Antwon Rodriguez MD Primary Care Provider [phone] Allergies No known active allergies Medications rosuvastatin [...] (three) times a day. 90 capsule 2 07/24/2024 Active furosemide (LASIX) 40 mg tablet Take 1 tablet (40 mg total) by mouth 1 (one) time each day. 60 tablet 1 08/23/2024 Active Active Problems Problem Noted Date Diagnosed [...] (04/04/2024): - Hospitalized in June 2021 at [facility] with CHF exacerbation in the setting [...] Years (1 of 2 - PCV) 07/11/1983 Zoster [...] Blood Test 10/19/2024 10/20/2023, 10/20/2023 Influenza Vaccine (#1) 2024 Cholesterol Screening (Lipid Panel) 10/19/2028 10/20/2023, [...] Results * Annual BMP Blood Test (10/20/2023) Annual BMP Blood Test abstracted [facility] Provider HEALTH MAINTENANCE Final Result * (ABNORMAL) Lipid panel (10/20/2023) Pathologist [facility] LDL/HDL Ratio 4 0 - 4 Triglycerides 245(A) 0 - 150 mg/dL Cholesterol 137 0 - 200 mg/dL HDL 35(A) >=40 mg/dL LDL Cholesterol 53 0 - 100 mg/dL Blood Venous blood specimen / Unknown [facility] Provider LAB BLOOD ORDERABLES Ericka l Result * Hepatitis C Screening (05/30/2001) Pathologist [facility] Hepatitis C Screening abstracted [facility] Provider HEALTH MAINTENANCE Final Result from Last 3 Months or Most Recently Relevant to Health Maintenance Insurance [facility] Advance Directives Documents on File Type Date Recorded Patient Manager Acquisition Expl anation Health Care Decision (hx) 06/26/2021 AD CARRILLO DIRECTIVE Health Care Decision (hx) 06/26/2021 AD CARRILLO DIRECTIVE Health Care Decision (hx) 06/26/2021 AD CARRILLO DIRECTIVE Care Teams Financial Planner Relationship Specialty Start Date End Date Antwon Rodriguez MD [address] [address] PCP - General Internal Medicine 04/05/24
== END 2024-10-04 13:19 | disposition home or self-care (01) ==
LOC: HO.ACS 13:00
PROVIDERS: PCP Internal Medicine; Visit Provider Internal Medicine Medical Oncology
DX: Z79.01 Long term (current) use of anticoagulants (principal)

== ENCOUNTER → 2024-10-04 13:00 | Outpatient (BNVA) | payer OTHER, SELFPAY | PROVIDERS: PCP Internal Medicine; Visit Provider Internal Medicine Medical Oncology | DX: Z86.718 Personal history of other venous thrombosis and embolism (principal); Z79.01 Long term (current) use of anticoagulants; Z51.81 Encounter for therapeutic drug level monitoring | CPT/HCPCS: 85610; 99211 ==

== ENCOUNTER 2024-11-01 13:01 | Outpatient (AMB) | payer OTHER, SELFPAY ==
[2024-11-01 13:11] LABS: Prothrombin Time Whole Bld POC 24.0 sec (11.1-13.5); ~PT, ~INR - Anti Coag Clinic 2.0 (0.9-1.1)
--- NOTE | 2024-11-01 13:17 | MHC.OFFVISCO ---
Intake Intake Visit Reasons: Anticoagulation Allergies Seasonal Allergies Allergy (Severe, Verified 11/01/24 13:06) Runny Nose Medication List - Last Reconciled 11/01/24 by Asia Soto RN acetaminophen ER (Arthritis Pain Relief (acetaminophen) ER) 650 mg PO Q8H amlodipine 10 mg PO DAILY cetirizine (Zyrtec) PO fexofenadine (Makayla Allergy) PRN furosemide 40 mg PO DAILY gabapentin 300 mg PO TID loratadine (Claritin) PO rosuvastatin 10 mg PO BEDTIME triamcinolone acetonide 0.1% topical PRN warfarin 4 mg See Protocol PO DAILY Nursing Note PT.STATES THAT HE HAD A SINGLE TOOTH EXTRACTION 1 WEEK AGO WITHOUT INCIDENT OR BLEEDING. HE ALSO STATES THAT HE HELD WARFARIN 2-3 DAYS(ON HIS OWN). HE FINISHES AMOXICILLIN TODAY NO CP,SOB, OR SX OF BLEEDING. CONTINUE PRESERNT DOSING AND FOLLOW-UP IN 4 WEEKS GOOD UNDERSTANDING OF DOSING INSTR. Anti-Coag Initial Assessment Social Hx Smoking packs per day: 0.5 Coding Level of Care Code Est Patient Level 1 Diagnoses Current use of anticoagulant therapy Z79.01 Assessment & Plan Assessment & Plan (1) Current use of anticoagulant therapy: Code(s): Z79.01 - penitentiary (current) use of anticoagulants Category: Medical
--- OUTSIDE RECORDS SUMMARY | 2024-11-01 13:33 | XMS_ITS | Encounter Summary ---
Author Organization [employer] Address [address] [place] [address] [address] [place] [address] Care Team Providers Care Regulatory Affairs Intern Name Role Phone Joleen Simon MD Primary Care Provider [phone] Encounter Details Date Type Department Care Team (Latest Contact Info) Description 05/30/2019 Abstract [facility] CONVERSIONS Dental, Provider, DDS Social History [...] on filedocumented in this encounter Care Teams Regulatory Affairs Intern Relationship Specialty Start Date End Date Joleen Simon MD [address] [place] [address] PCP - General Family Medicine 11/23/12 10/21/23 documented as of this encounter
--- OUTSIDE RECORDS SUMMARY | 2024-11-01 13:33 | XMS_ITS | Clinical Summary ---
Author Organization [facility] [employer] [facility] Address [address] [place] [address] Phone Care Team Providers Care Marine Transport Professionals Name Role Phone Antwon Rodriguez MD Primary Care Provider [phone] Allergies No known active allergies Medications acetaminophen (TYLENOL 8 HOUR) 650 mg 8 [...] each day. 60 tablet 1 5 Active rosuvastatin (CRESTOR) 10 mg tablet Take 1 tablet (10 mg total) by mouth at bedtime. 90 tablet 1 5 Active gabapentin (NEURONTIN) 300 mg capsule Take 1 capsule (300 mg total) by mouth 3 (three) times a day. 90 capsule 2 5 Active rosuvastatin (CRESTOR) 10 mg tablet Take 1 tablet (10 mg total) by mouth at bedtime. 90 tablet 1 5 10/11/19 25 Discontinu ed(Reorder ) gabapentin (NEURONTIN) 300 mg capsule Take 1 capsule (300 mg total) by mouth 3 (three) times a day. 90 capsule 2 5 10/18/19 25 Discontinu ed(Reorder ) Active Problems Problem [...] Encounters Date Type Department Care Team Description 10/16/2024 Telephone Internal Medicine - [address] [place] [address] Martita Shay MA faxed form (Medical clearance ) from Last 3 Months Medical History Medical [...] 2) 2014 Colorectal Cancer Screening: Colonoscopy 03/01/2022 HIV Screening 03/01/2022 Social Influencers of Health Screening 03/01/2022 COVID-19 Vaccine (1 - 2023-2 5 season) 2023 Depression Screening 03/22/2024 Diabetes: Annual Urine Albumin-Creatinine Ratio (uACR) 04/07/2024 [...] Results * Annual BMP Blood Test (10/20/2023) [facility] Annual BMP Blood Test abstracted [facility] Provider [facility] MAINTENANCE Final Result * (ABNORMAL) Lipid panel (10/20/2023) [facility] LDL/HDL Ratio 4 0 - 4 Triglycerides 245(A) 0 - 150 mg/dL Cholesterol 137 0 - 200 mg/dL HDL 35(A) >=40 mg/dL LDL Cholesterol 53 0 - 100 mg/dL Blood Venous blood specimen / Unknown [facility] Provider LAB BLOOD ORDERABLES Ericka l Result * Hepatitis C Screening (05/30/2001) [facility] Hepatitis C Screening abstracted [facility] Provider HEALTH MAINTENANCE Final Result from Last 3 Months or Most Recently Relevant to Health Maintenance Insurance [facility] Advance Directives Documents on File Type Date Recorded Patient Donor Services Manager Expl anation Health Care Decision (hx) 06/26/2021 AD CARRILLO DIRECTIVE Health Care Decision (hx) 06/26/2021 AD CARRILLO DIRECTIVE Health Care Decision (hx) 06/26/2021 AD CARRILLO DIRECTIVE Care Teams Marine Transport Professionals Relationship Specialty Start Date End Date Antwon Rodriguez MD [address] [facility] [address] [place] [address] PCP - General Internal Medicine 04/05/24
--- OUTSIDE RECORDS SUMMARY | 2024-11-01 13:33 | XMS_ITS | Clinical Summary ---
Author Organization [facility] Address [address] [place] [address] Phone Care Team Providers Care Tree Specialist Name Role Phone Joleen Simon MD Primary Care Provider Allergies No known active allergies Medications warfarin [...] (02/08/2023): - Hospitalized in June 2021 at [facility] with CHF exacerbation in the setting [...] patient's age to complete this topic Insurance [facility] Healthnet [facility]net Care Teams Tree Specialist Relationship Specialty Start Date End Date Joleen Simon MD [address] [place] [address] PCP - General Family Medicine 06/30/21
== END 2024-11-01 13:23 | disposition home or self-care (01) ==
LOC: HO.ACS 13:01
PROVIDERS: PCP Internal Medicine; Visit Provider Internal Medicine Medical Oncology
DX: Z79.01 Long term (current) use of anticoagulants (principal)

== ENCOUNTER → 2024-11-01 13:01 | Outpatient (BNVA) | payer OTHER, SELFPAY | PROVIDERS: PCP Internal Medicine; Visit Provider Internal Medicine Medical Oncology | DX: Z79.01 Long term (current) use of anticoagulants (principal) | CPT/HCPCS: 85610; 99211 ==

== ENCOUNTER 2024-12-06 13:00 | Outpatient (AMB) | payer OTHER, SELFPAY ==
--- NOTE | 2024-12-06 13:26 | MHC.OFFVISCO ---
Intake Intake Visit Reasons: Anticoagulation Allergies Seasonal Allergies Allergy (Severe, Verified 12/06/24 13:23) Runny Nose Medication List - Last Reconciled 12/06/24 by Nery Holguin RN acetaminophen ER (Arthritis Pain Relief (acetaminophen) ER) 650 mg PO Q8H amlodipine 10 mg PO DAILY cetirizine (Zyrtec) PO fexofenadine (Makayla Allergy) PRN furosemide 40 mg PO DAILY gabapentin 300 mg PO TID loratadine (Claritin) PO rosuvastatin 10 mg PO BEDTIME triamcinolone acetonide 0.1% topical PRN warfarin 4 mg See Protocol PO DAILY Nursing Note INR: 2.8- in therapeutic range of 2-3 Medications and supplements reviewed- no changes No changes in health, diet, medications, or supplements, Denies any signs and symptoms of bleeding or bruising or clotting. Bleeding, bruising, clotting discussed Nutritional guidance given Dose: 4mg x 6, 6mg x 1 F/U INR: 4 weeks Patient verbalizes understanding of instructions given pt with limited mobility and uses crutches. upcoming dental appts/cap Anti-Coag Initial Assessment Social Hx Smoking packs per day: 0.5 Coding Level of Care Code Est Patient Level 1 Diagnoses Current use of anticoagulant therapy Z79.01 Assessment & Plan Assessment & Plan (1) Current use of anticoagulant therapy: Code(s): Z79.01 - long term care administrator (current) use of anticoagulants Category: Medical
[2024-12-06 13:27] LABS: Prothrombin Time Whole Bld POC 33.8 sec (11.1-13.5); ~PT, ~INR - Anti Coag Clinic 2.8 (0.9-1.1)
--- OUTSIDE RECORDS SUMMARY | 2024-12-06 16:28 | XMS_ITS ---
Author Name [facility] Organization Unknown Care Team Organization Name Specialty Phone Email Start Date End Da te [facility] PANFILO HARVEY Primary Care 01/27/2022 11/08/19 24
--- OUTSIDE RECORDS SUMMARY | 2024-12-06 16:28 | XMS_ITS | Clinical Summary ---
Author Organization [employer] Address [address] [place] [address] [address] [place] [address] Care Team Providers Care Etymology Professor Name Role Phone Unavailable Primary Care Provider [...] COVID-19 Vaccine ( - 2023-2 5 season) 2024 Influenza Vaccine (#1) 2024 DTaP/Tdap/Td Vaccines (2 - T d or [...]
--- OUTSIDE RECORDS SUMMARY | 2024-12-06 16:28 | XMS_ITS | Encounter Summary ---
Author Organization [employer] Address [address] [place] [address] [address]t [place] [address] Care Team Providers Care Inspector Raw Quartz Name Role Phone Joleen Simon MD Primary Care Provider [phone] Encounter Details Date Type Department Care Team (Latest Contact Info) Description 05/30/2019 Abstract [facility] CONVERSIONS Dental, Provider, DDS Social History [...] on filedocumented in this encounter Care Teams Inspector Raw Quartz Relationship Specialty Start Date End Date Joleen Simon MD [address] [place] [address] PCP - General Family Medicine 11/23/12 10/21/23 documented as of this encounter
--- OUTSIDE RECORDS SUMMARY | 2024-12-06 16:28 | XMS_ITS | Encounter Summary ---
Author Organization [employer] Address [address] [place] [address] [address] [place] [address] Care Team Providers Care Mill Hand Name Role Phone Joleen Simon MD Primary Care Provider [phone] Reason for Visit * Reason Comments Med Refill Encounter Details Date Type Department Care Team (Late st Contact Info) Description 12/08/2022 Refill [facility] [address] [place] [address] Joleen Simon MD [address] [place] [address] Social History Tobacco Use Types Packs/Day Years [...] on filedocumented in this encounter Care Teams Mill Hand Relationship Specialty Start Date End Date Joleen Simon MD [address] [place] [address] PCP - General Family Medicine 11/23/12 10/21/23 documented as of this encounter
== END 2024-12-06 13:35 | disposition home or self-care (01) ==
LOC: HO.ACS 13:00
PROVIDERS: PCP Internal Medicine; Visit Provider Internal Medicine Medical Oncology
DX: Z79.01 Long term (current) use of anticoagulants (principal)

== ENCOUNTER → 2024-12-06 13:00 | Outpatient (BNVA) | payer OTHER, SELFPAY | PROVIDERS: PCP Internal Medicine; Visit Provider Internal Medicine Medical Oncology | DX: Z86.718 Personal history of other venous thrombosis and embolism (principal); Z79.01 Long term (current) use of anticoagulants; Z51.81 Encounter for therapeutic drug level monitoring | CPT/HCPCS: 85610; 99211 ==

== ENCOUNTER 2025-01-03 13:24 | Outpatient (AMB) | payer OTHER, SELFPAY ==
--- NOTE | 2025-01-03 13:28 | MHC.OFFVISCO ---
Intake Intake Visit Reasons: Anticoagulation Allergies Seasonal Allergies Allergy (Severe, Verified 01/03/25 13:24) Runny Nose Medication List - Last Reconciled 01/03/25 by Nery Holguin RN acetaminophen ER (Arthritis Pain Relief (acetaminophen) ER) 650 mg PO Q8H amlodipine 10 mg PO DAILY cetirizine (Zyrtec) PO fexofenadine (Makayla Allergy) PRN furosemide 40 mg PO DAILY gabapentin 300 mg PO TID loratadine (Claritin) PO rosuvastatin 10 mg PO BEDTIME triamcinolone acetonide 0.1% topical PRN warfarin 4 mg See Protocol PO DAILY Nursing Note INR 3.1- out of therapeutic range 2-3 Medications and supplements reviewed Patient status: amb with crutches Medications or supplements: no changes Diet: lettuce and peppers on grinders Denies any signs and symptoms of bleeding or clotting or unusual bruising Bleeding, bruising, clotting discussed Nutritional guidance given: eat cooked greens today and tomm Dose: cont reg dosing- 6mg x 1. 4mg x 6 F/U INR Date : pt req one month ? Patient verbalizing understanding of instructions given. Anti-Coag Initial Assessment Social Hx Smoking packs per day: 0.5 Coding Level of Care Code Est Patient Level 1 Diagnoses Current use of anticoagulant therapy Z79.01 Results AMB INR Fingerstick AMB INR Fingerstick 3.1 Last Edit by Nery Holguin RN on 01/03/25 13:31 interface delay Assessment & Plan Assessment & Plan (1) Current use of anticoagulant therapy: Code(s): Z79.01 - penitentiary (current) use of anticoagulants Category: Medical
--- OUTSIDE RECORDS SUMMARY | 2025-01-03 17:04 | XMS_ITS | Encounter Summary ---
Author Organization [employer] Address [address] [place] [address] [address]t [place] [address] Care Team Providers Care Favor Maker Name Role Phone Joleen Simon MD Primary Care Provider [phone] Reason for Visit * Reason Comments Med Refill Encounter Details Date Type Department Care Team (Late st Contact Info) Description 12/08/2022 Refill [facility] [address] [place] [address] Joleen Simon MD [address] [place] [address] Social History Tobacco Use Types Packs/Day Years [...] on filedocumented in this encounter Care Teams Favor Maker Relationship Specialty Start Date End Date Joleen Simon MD [address] [place] [address] PCP - General Family Medicine 11/23/12 10/21/23 documented as of this encounter
--- OUTSIDE RECORDS SUMMARY | 2025-01-03 17:04 | XMS_ITS | Encounter Summary ---
Author Organization [employer] Address [address] [place] [address] 7t [place] [address] Care Team Providers Care Sales Trader Name Role Phone Joleen Simon MD Primary Care Provider [phone] Encounter Details Date Type Department Care Team (Latest Contact Info) Description 05/30/2019 Abstract [facility] CONVERSIONS Dental, Provider, DDS Social [...] on filedocumented in this encounter Care Teams Sales Trader Relationship Specialty Start Date End Date Joleen Simon MD [address] [place] [address] PCP - General Family Medicine 11/23/12 10/21/23 documented as of this encounter
--- OUTSIDE RECORDS SUMMARY | 2025-01-03 17:04 | XMS_ITS | Clinical Summary ---
Author Organization [employer] Address [address] [place] [address] 7t [place] [address] Care Team Providers Care Yeast Fermentation Attendant Name Role Phone Unavailable Primary Care Provider [...]
[2025-01-04 08:19] LABS: Prothrombin Time Whole Bld POC 37.2 sec (11.1-13.5); ~PT, ~INR - Anti Coag Clinic 3.1 (0.9-1.1)
== END 2025-01-03 13:39 | disposition home or self-care (01) ==
LOC: HO.ACS 13:24
PROVIDERS: PCP Internal Medicine; Visit Provider Internal Medicine Medical Oncology
DX: Z79.01 Long term (current) use of anticoagulants (principal)

== ENCOUNTER → 2025-01-03 13:24 | Outpatient (BNVA) | payer OTHER, SELFPAY | PROVIDERS: PCP Internal Medicine; Visit Provider Internal Medicine Medical Oncology | DX: Z86.718 Personal history of other venous thrombosis and embolism (principal); Z79.01 Long term (current) use of anticoagulants; Z51.81 Encounter for therapeutic drug level monitoring | CPT/HCPCS: 85610; 99211 ==

== ENCOUNTER 2025-01-31 13:05 | Outpatient (AMB) | payer OTHER, SELFPAY ==
--- NOTE | 2025-01-31 13:17 | MHC.OFFVISCO ---
Intake Intake Visit Reasons: Anticoagulation Allergies Seasonal Allergies Allergy (Severe, Verified 01/31/25 13:10) Runny Nose Medication List - Last Reconciled 01/31/25 by Nery Holguin RN acetaminophen ER (Arthritis Pain Relief (acetaminophen) ER) 650 mg PO Q8H amlodipine 10 mg PO DAILY cetirizine (Zyrtec) PO fexofenadine (Makayla Allergy) PRN furosemide 40 mg PO DAILY gabapentin 300 mg PO TID loratadine (Claritin) PO rosuvastatin 10 mg PO BEDTIME triamcinolone acetonide 0.1% topical PRN warfarin 4 mg See Protocol PO DAILY Nursing Note INR: 2.2- in therapeutic range 2-3 Medications and supplements reviewed- no changes No changes in health, diet, medications, or supplements, Denies any signs and symptoms of bleeding or bruising or clotting. Bleeding, bruising, clotting discussed Nutritional guidance given Dose: 6mg x 1, 4mg x 6 F/U INR: 4 weeks Patient verbalizes understanding of instructions given pt amb with crutches Anti-Coag Initial Assessment Social Hx Smoking packs per day: 0.5 Coding Level of Care Code Est Patient Level 1 Diagnoses Current use of anticoagulant therapy Z79.01 Assessment & Plan Assessment & Plan (1) Current use of anticoagulant therapy: Code(s): Z79.01 - group home (current) use of anticoagulants Category: Medical
[2025-01-31 13:18] LABS: Prothrombin Time Whole Bld POC 25.9 sec (11.1-13.5); ~PT, ~INR - Anti Coag Clinic 2.2 (0.9-1.1)
--- OUTSIDE RECORDS SUMMARY | 2025-01-31 15:51 | XMS_ITS | Encounter Summary ---
Author Organization [employer] Address [address] [place] [address] [address] [place] [address] Care Team Providers Care Senior Windows Systems Administrator Name Role Phone Joleen Simon MD Primary Care Provider [phone] Encounter Details Date Type Department Care Team (Latest Contact Info) Description 05/30/2019 Abstract [facility] CONVERSIONS Dental, Provider, DDS Social [...] filedocumented in this encounter Care Teams Senior Windows Systems Administrator Relationship Specialty Start Date End Date Joleen Simon MD [address] [place] [address] PCP - General Family Medicine 11/23/12 10/21/23 documented as of this encounter
--- OUTSIDE RECORDS SUMMARY | 2025-01-31 15:51 | XMS_ITS | Encounter Summary ---
Author Organization [employer] Address [address] [place] [address] [address]t [place] [address] Care Team Providers Care Authorizer Name Role Phone Joleen Simon MD Primary Care Provider [phone] Reason for Visit * Reason Comments Med Refill Encounter Details Date Type Department Care Team (Late st Contact Info) Description 12/08/2022 Refill [facility] [address] [place] [address] Joleen Simon MD [address] [place] [address] Social History Tobacco Use Types Packs/Day Years [...] on filedocumented in this encounter Care Teams Authorizer Relationship Specialty Start Date End Date Joleen Simon MD [address] [place] [address] PCP - General Family Medicine 11/23/12 10/21/23 documented as of this encounter
--- OUTSIDE RECORDS SUMMARY | 2025-01-31 15:51 | XMS_ITS | Clinical Summary ---
Author Organization [facility] [employer] [facility] Address [address] [address] Phone Care Team Providers Care Manager Bank Name Role Phone Antwon Rodriguez MD Primary Care Provider [phone] Allergies No known active allergies Medications acetaminophen [...] with dinner. 90 tablet 3 5 Active rosuvastatin (CRESTOR) 10 mg tablet Take 1 tablet (10 mg total) by mouth at bedtime. 90 tablet 1 5 Active furosemide (LASIX) 40 [...] time each day. 60 tablet 1 5 01/05/20 25 Discontinu ed(Reorder ) gabapentin (NEURONTIN) 300 mg capsule Take 1 capsule (300 mg total) by mouth 3 (three) times a day. 90 capsule 2 5 01/17/20 25 Discontinu ed(Reorder ) Active Problems Problem [...] Health Maintenance Due Date Last Done Comments Colorectal Cancer Screening: Colonoscopy 1964 Diabetes: Annual Foot Exam 1974 Diabetes: Annual Retina Eye Exam 1974 DTaP,Tdap,and Td Vaccines (1 - Tdap) 07/11/1983 Pneumococcal Vaccine: 50+ Years (1 of 2 - PCV) 07/11/1983 RSV Immunization Adult Patients (1 - Risk 50-74 years 1-dose series) 2014 Zoster Vaccines (1 of 2) 2014 HIV Screening 03/01/2022 Social Influencers of Health Screening 03/01/2022 Depression Screening 03/22/2024 Diabetes: Annual Urine Albumin-Creatinine Ratio (uACR) 04/07/2024 Diabetes: Blood Sugar Contro l Test (HGBA1C) 04/07/2024 Diabetes: Annual GFR (Glomerular Filtration Rate) 10/19/2024 10/20/2023, 10/20/2023 Hypertension/CHF/CAD Annual BMP Blood Test 10/19/2024 10/20/2023, 10/20/2023 COVID-19 Vaccine ( - 2024-2 6 season) 2024 Influenza Vaccine (#1) 2024 Cholesterol Screening (Lipid [...] * Annual BMP Blood Test (10/20/2023) Pathologist [facility] Annual BMP Blood Test abstracted [facility] Provider HEALTH MAINTENANCE Final Result * (ABNORMAL) Lipid panel (10/20/2023) [facility] LDL/HDL Ratio 4 0 - 4 Triglycerides 245(A) 0 - 150 mg/dL Cholesterol 137 0 - 200 mg/dL HDL 35(A) >=40 mg/dL LDL Cholesterol 53 0 - 100 mg/dL Blood Venous blood specimen / Unknown [facility] Provider LAB BLOOD ORDERABLES Ericka l Result * Hepatitis C Screening (05/30/2001) Pathologist [facility] Hepatitis C Screening abstracted Historical Provider HEALTH MAINTENANCE Final Result from Last 3 Months or Most Recently Relevant to Health Maintenance Insurance [facility] Advance Directives Documents on File Type Date Recorded Patient Millwork Estimator Expl anation Health Care Decision (hx) 06/26/2021 AD CARRILLO DIRECTIVE Health Care Decision (hx) 06/26/2021 AD CARRILLO DIRECTIVE Health Care Decision (hx) 06/26/2021 AD CARRILLO DIRECTIVE Care Teams Manager Bank Relationship Specialty Start Date End Date Antwon Rodriguez MD [address] [address] PCP - General Internal Medicine 04/05/24
--- OUTSIDE RECORDS SUMMARY | 2025-01-31 15:51 | XMS_ITS | Clinical Summary ---
Author Organization [employer] Address [address] [place] [address] [address] [place] [address] Care Team Providers Care Solderer Production Line Name Role Phone Unavailable Primary Care Provider [...]
== END 2025-01-31 13:24 | disposition home or self-care (01) ==
LOC: HO.ACS 13:05
PROVIDERS: PCP Internal Medicine; Visit Provider Internal Medicine Medical Oncology
DX: Z79.01 Long term (current) use of anticoagulants (principal)

== ENCOUNTER → 2025-01-31 13:05 | Outpatient (BNVA) | payer OTHER, SELFPAY | PROVIDERS: PCP Internal Medicine; Visit Provider Internal Medicine Medical Oncology | DX: Z86.718 Personal history of other venous thrombosis and embolism (principal); Z51.81 Encounter for therapeutic drug level monitoring; Z79.01 Long term (current) use of anticoagulants | CPT/HCPCS: 85610; 99211 ==

== ENCOUNTER 2025-02-28 12:59 | Outpatient (AMB) | payer OTHER, SELFPAY ==
--- NOTE | 2025-02-28 13:09 | MHC.OFFVISCO ---
Intake Intake Visit Reasons: Anticoagulation Allergies Seasonal Allergies Allergy (Severe, Verified 02/28/25 13:04) Runny Nose Medication List - Last Reconciled 02/28/25 by Nery Holguin RN acetaminophen ER (Arthritis Pain Relief (acetaminophen) ER) 650 mg PO Q8H amlodipine 10 mg PO DAILY cetirizine (Zyrtec) PO fexofenadine (Makayla Allergy) PRN furosemide 40 mg PO DAILY gabapentin 300 mg PO TID loratadine (Claritin) PO rosuvastatin 10 mg PO BEDTIME triamcinolone acetonide 0.1% topical PRN warfarin 4 mg See Protocol PO DAILY Nursing Note INR: 2.3- in therapeutic range 2-3 Medications and supplements reviewed- no changes No changes in health, diet, medications, or supplements, Denies any signs and symptoms of bleeding or bruising or clotting. Bleeding, bruising, clotting discussed Nutritional guidance given Dose: 4mg x 6, 6mg x 1 F/U INR: 4 weeks Patient verbalizes understanding of instructions given pt to acs, amb with crutches. Anti-Coag Initial Assessment Social Hx Smoking packs per day: 0.5 Questionnaires HAS-BLED Does the patient had uncontrolled Hypertension?: No Does the patient have renal disease?: Yes Does the patient have liver disease?: No Does the patient have a history of stroke?: No Has the patient had major bleeding or predisposition to bleeding?: No Does the patient have labile INRs?: No Is the patient over 65 years of age?: No Is the patient on medications that gives them a predisposition to bleeding?: Yes Does the patient use alcohol?: No HAS-BLED Score: 2 CHADSVASC Age: <65 Gender: Male Does the patient have a history of CHF?: No Does the patient have a history of Hypertension?: Yes Does the patient have a history of Stroke/TIA/Thromboembolism?: Yes Does the patient have a history of Vascular Disease (prior SC, PAD or aortic plaque)?: No Does the patient have a history of Diabetes?: No CHADS VACS Score: 3 Nate Prediction Score Rsk VTE Active Cancer: No Previous VTE, excluding superficial vein thrombosis: Yes Reduced mobility: Yes Already known Thrombophilic Condition: No With-in last month Trauma and/or Surgery: No Elderly 70 year or older: No Heart and/or Respiratory Failure: No Acute Myocardial infarction and/or Ischemic Stroke: No Acute Infection and/or Rheumatologic Disorder: No Obesity (BMI 30 or greater): Yes Ongoing Hormonal Treatment: No Score: 7 Nate Score less than 4; Low Risk of VTE Nate Score 4 or greater; High Risk of VTE Coding Level of Care Code Est Patient Level 1 Diagnoses Current use of anticoagulant therapy Z79.01 Results AMB INR Fingerstick AMB INR Fingerstick 2.3 Last Edit by Nery Holguin RN on 02/28/25 13:11 interface delay Assessment & Plan Assessment & Plan (1) Current use of anticoagulant therapy: Code(s): Z79.01 - halfway (current) use of anticoagulants Category: Medical
[2025-03-01 08:14] LABS: Prothrombin Time Whole Bld POC 27.8 sec (11.1-13.5); ~PT, ~INR - Anti Coag Clinic 2.3 (0.9-1.1)
== END 2025-02-28 13:21 | disposition home or self-care (01) ==
LOC: HO.ACS 12:59
PROVIDERS: PCP Internal Medicine; Visit Provider Internal Medicine Medical Oncology
DX: Z79.01 Long term (current) use of anticoagulants (principal)

== ENCOUNTER → 2025-02-28 12:59 | Outpatient (BNVA) | payer OTHER, SELFPAY | PROVIDERS: PCP Internal Medicine; Visit Provider Internal Medicine Medical Oncology | DX: Z86.718 Personal history of other venous thrombosis and embolism (principal); Z79.01 Long term (current) use of anticoagulants; Z51.81 Encounter for therapeutic drug level monitoring | CPT/HCPCS: 85610; 99211 ==